=== PATIENT | male | born 1950 | race Caucasian/White ===

== ENCOUNTER 2017-03-28 08:24 | Inpatient (IN) ==
[2017-03-28] MEDS ORDERED: Aspirin 325 MG TABLET PO ONE (08:32)
--- NOTE | 2017-03-28 08:33 | Emergency Department Note ---
Disposition Clinical Impression: A-fib, Chest pain, Elevated troponin Disposition: Admitted As Inpatient Condition: Fair General Adult HPI - General Chief complaint: ED Chest Pain Stated complaint: CP / RORO Time Seen by Provider: 03/28/17 08:27 - Related Data Home Medications Medication Instructions Recorded Confirmed Acetaminophen/Diphenhydramine 1 tab PO HS 03/28/17 03/28/17 [Acetaminophen Pm Caplet] Albuterol Sulfate [Proair Hfa] 2 puff IH Q4H PRN 03/28/17 03/28/17 Glimepiride [Amaryl] 2 mg PO QAM 03/28/17 03/28/17 Omeprazole [PriLOSEC] 20 mg PO DAILY 03/28/17 03/28/17 Allergies Allergy/AdvReac Type Severity Reaction Status Date / Time No Known Allergies Allergy Verified 03/28/16 11:50 Past Medical History - Past Medical History Medical history: Reports: non-contributory, diabetes Surgical history: Reports: non-contributory - Social History Smoking Status: Never smoker Smokeless Tobacco Status: No Alcohol use: Reports: none Drug use: Reports: none Course Vital Signs Temperature 97.7 F 03/28/17 08:27 Pulse Rate 136 03/28/17 08:27 Respiratory Rate 16 03/28/17 08:27 Blood Pressure 136/108 03/28/17 08:27 O2 Sat by Pulse Oximetry 94 03/28/17 08:27 Temperature 98.2 F 03/28/17 15:38 Pulse Rate 71 03/28/17 15:38 Respiratory Rate 16 03/28/17 15:38 Blood Pressure 90/77 03/28/17 15:38 O2 Sat by Pulse Oximetry 96 03/28/17 15:38 Oxygen Delivery Oxygen Delivery Room Air Medical Decision Making - Lab Data Result diagrams: 03/28/17 12:24 03/28/17 08:31 Lab Results 03/28/17 03/28/17 03/28/17 Range/Units 08:31 08:31 08:31 WBC 11.2 H (4.3-11.1) K/mcL RBC 5.17 (4.19-5.50) M/mcL Hgb 15.6 (12.9-16.9) g/dL Hct 48.5 (37.5-50.1) % MCV 93.8 (83.0-100.0) fL MCH 30.2 (28.0-33.3) pg MCHC 32.2 (31.6-35.5) g/dL RDW 13.2 (11.5-14.5) % Plt Count 211 (140-400) K/mcL MPV 12.0 (9.4-12.4) fL Immature Gran % 0.5 (0-4) % Seg Neutrophils % 62.0 % Lymphocytes % 26.2 % Monocytes % 8.1 % Eosinophils % 2.8 % Basophils % 0.4 % Neutrophils # 7.0 (1.6-8.9) K/mcL Lymphocytes # 2.9 (0.6-4.6) K/mcL Monocytes # 0.9 (0.0-1.3) K/mcL Eosinophils # 0.3 (0.0-0.6) K/mcL Basophils # 0.1 (0.0-0.2) K/mcL PT 12.4 H (9.4-12.1) Seconds INR 1.1 APTT 31.3 (26.0-36.0) Seconds D-Dimer 472 (0-500) ng/mLFEU Sodium 136 (136-145) mEq/L Potassium 4.1 (3.5-4.5) mEq/L Chloride 101 (98-109) mEq/L Carbon Dioxide 25 (19-29) mEq/L BUN 12 (8-26) mg/dL Creatinine 0.96 (0.72-1.25) mg/dL Est GFR ( Amer) > 60 (> 60) Est GFR (Non-Af Amer) > 60 (> 60) BUN/Creatinine Ratio 13 (6-26) Glucose 230 H (70-99) mg/dL POC Glucose (58-89) Calculated Osmolality 289 (280-300) Calcium 9.3 (8.6-10.8) mg/dL Magnesium 1.9 (1.6-2.6) mg/dL Troponin I (0-0.03) ng/mL TSH 2.743 (0.350-4.840) mcIU/mL 03/28/17 03/28/17 Range/Units 08:31 11:47 WBC (4.3-11.1) K/mcL RBC (4.19-5.50) M/mcL Hgb (12.9-16.9) g/dL Hct (37.5-50.1) % MCV (83.0-100.0) fL MCH (28.0-33.3) pg MCHC (31.6-35.5) g/dL RDW (11.5-14.5) % Plt Count (140-400) K/mcL MPV (9.4-12.4) fL Immature Gran % (0-4) % Seg Neutrophils % % Lymphocytes % % Monocytes % % Eosinophils % % Basophils % % Neutrophils # (1.6-8.9) K/mcL Lymphocytes # (0.6-4.6) K/mcL Monocytes # (0.0-1.3) K/mcL Eosinophils # (0.0-0.6) K/mcL Basophils # (0.0-0.2) K/mcL PT (9.4-12.1) Seconds INR APTT (26.0-36.0) Seconds D-Dimer (0-500) ng/mLFEU Sodium (136-145) mEq/L Potassium (3.5-4.5) mEq/L Chloride (98-109) mEq/L Carbon Dioxide (19-29) mEq/L BUN (8-26) mg/dL Creatinine (0.72-1.25) mg/dL Est GFR ( Amer) (> 60) Est GFR (Non-Af Amer) (> 60) BUN/Creatinine Ratio (6-26) Glucose (70-99) mg/dL POC Glucose 228 H (58-89) Calculated Osmolality (280-300) Calcium (8.6-10.8) mg/dL Magnesium (1.6-2.6) mg/dL Troponin I 0.06 H* (0-0.03) ng/mL TSH (0.350-4.840) mcIU/mL Critical Care Time Critical Care Time: Yes Total Critical Care Time: 30 Attestation: Patient presented with a tachyarrhythmia requiring IV rate control agents and admission Attestation Statement - Attestation Attestation: I examined this patient and my medical decision-making was reviewed with the ESTATE PLANNING DIRECTOR/PA/Advanced Practice Nurse/Resident Physician. I agree with the documented findings, disposition and treatment plan as described except to the extent set forth below. [id number] time provided Patient complains of dyspnea and chest pain. In no acute distress on exam. EKG reviewed by me with the resident physician Dr. Mena which shows atrial fibrillation with RVR versus atrial flutter.
[2017-03-28 08:53] LABS: Basophils # 0.1 K/mcL (0.0-0.2); Basophils % 0.4 %; Eosinophils # 0.3 K/mcL (0.0-0.6); Eosinophils % 2.8 %; Hematocrit 48.5 % (37.5-50.1); Hemoglobin 15.6 g/dL (12.9-16.9); Immature Granulocytes % 0.5 % (0-4); Lymphocytes # 2.9 K/mcL (0.6-4.6); Lymphocytes % 26.2 %; Mean Corpuscular HGB Conc 32.2 g/dL (31.6-35.5); Mean Corpuscular Hemoglobin 30.2 pg (28.0-33.3); Mean Corpuscular Volume 93.8 fL (83.0-100.0); Monocytes # 0.9 K/mcL (0.0-1.3); Monocytes % 8.1 %; Platelet Count 211 K/mcL (140-400); Red Blood Count 5.17 M/mcL (4.19-5.50); Red Cell Distribution Width 13.2 % (11.5-14.5)
[2017-03-28 09:05] LABS: INR 1.1; Prothrombin Time 12.4 Seconds (9.4-12.1)
[2017-03-28 09:07] LABS: Activated Partial Thrombo Time 31.3 Seconds (26.0-36.0)
[2017-03-28 09:10] LABS: BUN/Creatinine Ratio 13 (6-26); Blood Urea Nitrogen 12 mg/dL (8-26); Calcium 9.3 mg/dL (8.6-10.8); Carbon Dioxide 25 mEq/L (19-29); Chloride 101 mEq/L (98-109); Glucose 230 mg/dL (70-99); Magnesium 1.9 mg/dL (1.6-2.6); Osmolality,Calculated 289 (280-300); Potassium 4.1 mEq/L (3.5-4.5); Sodium 136 mEq/L (136-145); eGFR For African Americans > 60 (> 60); eGFR For Non-African Americans > 60 (> 60)
--- NOTE | 2017-03-28 09:19 | Emergency Department Note ---
Disposition Clinical Impression: Elevated troponin A-fib Qualifiers: Atrial fibrillation type: unspecified Qualified Code(s): I48.91 - Unspecified atrial fibrillation Chest pain Qualifiers: Chest pain type: other chest pain Qualified Code(s): R07.89 - Other chest pain ; R07.8 - Other chest pain Disposition: Admitted As Inpatient Condition: Fair Referrals: NO,PCP [Non-Partnered Physician] - Forms: ED Satisfaction Letter Time of Disposition: 10:46 Chest Pain HPI - General Chief Complaint: ED Chest Pain Stated Complaint: CP / RORO Time Seen by Provider: 03/28/17 08:27 Source: patient Mode of arrival: ambulatory Limitations: no limitations Vital Signs Reviewed: Yes Nursing Notes Reviewed: Yes - History of Present Illness HPI Narrative: Patient presents to the ED the chief complaint of chest pain and shortness of breath. Patient reports all of this started about 2 weeks ago. He started developing swelling and "water" on his bilateral lower extremities. About a week ago he started getting short of breath. It is worse with exertion, bending over to tie his shoes and minimally occurs at rest. Went to see his primary care physician who did an EKG and told him that "it was bad". This was approximately 2 days ago. He was told to come to the ER if "he had any symptoms." He states that the shortness of breath has been about the same. However, over the last couple of days has been getting worse. He states that upon arrival to the ED started developing chest pain that he describes as central substernal, feels like his heart is flopping around, nonradiating, better or worse and nothing. No previous history of pain like this. No blood thinners other than aspirin which he took last night. No history of DVT or PE. No history of malignancy. Severity scale (1-10): 6 - Related Data Home Medications Medication Instructions Recorded Confirmed Acetaminophen/Diphenhydramine 1 tab PO HS 03/28/17 03/28/17 [Acetaminophen Pm Caplet] Albuterol Sulfate [Proair Hfa] 2 puff IH Q4H PRN 03/28/17 03/28/17 Glimepiride [Amaryl] 2 mg PO QAM 03/28/17 03/28/17 Omeprazole [PriLOSEC] 20 mg PO DAILY 03/28/17 03/28/17 Allergies Allergy/AdvReac Type Severity Reaction Status Date / Time No Known Allergies Allergy Verified 03/28/16 11:50 All systems ED: reviewed and negative except as stated. Cardiovascular: Reports: chest pain, dyspnea on exertion, edema Respiratory: Reports: dyspnea. Denies: cough, sputum production Gastrointestinal: Reports: nausea Chest Pain PMH - Past Medical History Medical history: Reports: non-contributory, diabetes Surgical history: Reports: non-contributory Psychiatric history: Reports: no psych history - Social History Smoking Status: Never smoker Alcohol use: Reports: none Drug use: Reports: none Physical Exam - General Limitations: no limitations General appearance: alert, in no apparent distress, obese - Head Head exam: atraumatic, normocephalic, normal inspection - Eye Eye exam: Present: normal appearance, PERRL, EOMI - ENT ENT exam: normal exam, normal oropharynx, mucous membranes moist - Neck Neck exam: Present: normal inspection, full ROM, trachea midline - Chest Chest inspection: Present: normal inspection, symmetric chest wall rise - Respiratory Respiratory exam: Present: normal lung sounds bilaterally - Cardiovascular Cardiovascular exam: Present: tachycardia, irregular rhythm - Abdominal Exam Abdominal exam: Present: soft, other (obese) - Extremities Exam Extremities exam: Present: full ROM, normal capillary refill, pedal edema (2-3+ bilat) - Neurological Exam Neurological exam: Present: alert, oriented X3 - Psychiatric Psychiatric exam: Present: normal affect, normal mood - Skin Skin exam: Present: warm, dry, intact, normal color Course Course Narrative: 66 year old male presenting with SOB. Had some CP after walking to hospital today. Self resolved. Pain free currently. Saw PCP 2 days ago and had EKG which didn't "look good" told to come to ED. Had blood work yesterday with elevated trop. Admitting for new onset A-fib, CP, elevated trop. Has had ASA already. Vital Signs Temperature 97.7 F 03/28/17 08:27 Pulse Rate 136 03/28/17 08:27 Respiratory Rate 16 03/28/17 08:27 Blood Pressure 136/108 03/28/17 08:27 O2 Sat by Pulse Oximetry 94 03/28/17 08:27 Temperature 97.7 F 03/28/17 08:27 Pulse Rate 114 03/28/17 10:01 Respiratory Rate 16 03/28/17 10:01 Blood Pressure 135/60 03/28/17 10:01 O2 Sat by Pulse Oximetry 95 03/28/17 10:01 Oxygen Delivery Oxygen Delivery Room Air Chest Pain - Medical Records Medical records reviewed: Yes I reviewed the patient's medical records. - Lab Data Lab results reviewed: Yes I reviewed the patient's lab results. Result diagrams: 03/28/17 08:31 03/28/17 08:31 Lab Results 03/28/17 03/28/17 03/28/17 Range/Units 08:31 08:31 08:31 WBC 11.2 H (4.3-11.1) K/mcL RBC 5.17 (4.19-5.50) M/mcL Hgb 15.6 (12.9-16.9) g/dL Hct 48.5 (37.5-50.1) % MCV 93.8 (83.0-100.0) fL MCH 30.2 (28.0-33.3) pg MCHC 32.2 (31.6-35.5) g/dL RDW 13.2 (11.5-14.5) % Plt Count 211 (140-400) K/mcL MPV 12.0 (9.4-12.4) fL Immature Gran % 0.5 (0-4) % Seg Neutrophils % 62.0 % Lymphocytes % 26.2 % Monocytes % 8.1 % Eosinophils % 2.8 % Basophils % 0.4 % Neutrophils # 7.0 (1.6-8.9) K/mcL Lymphocytes # 2.9 (0.6-4.6) K/mcL Monocytes # 0.9 (0.0-1.3) K/mcL Eosinophils # 0.3 (0.0-0.6) K/mcL Basophils # 0.1 (0.0-0.2) K/mcL PT 12.4 H (9.4-12.1) Seconds INR 1.1 APTT 31.3 (26.0-36.0) Seconds D-Dimer 472 (0-500) ng/mLFEU Sodium 136 (136-145) mEq/L Potassium 4.1 (3.5-4.5) mEq/L Chloride 101 (98-109) mEq/L Carbon Dioxide 25 (19-29) mEq/L BUN 12 (8-26) mg/dL Creatinine 0.96 (0.72-1.25) mg/dL Est GFR ( Amer) > 60 (> 60) Est GFR (Non-Af Amer) > 60 (> 60) BUN/Creatinine Ratio 13 (6-26) Glucose 230 H (70-99) mg/dL Calculated Osmolality 289 (280-300) Calcium 9.3 (8.6-10.8) mg/dL Magnesium 1.9 (1.6-2.6) mg/dL Troponin I (0-0.03) ng/mL TSH 2.743 (0.350-4.840) mcIU/mL 03/28/17 Range/Units 08:31 WBC (4.3-11.1) K/mcL RBC (4.19-5.50) M/mcL Hgb (12.9-16.9) g/dL Hct (37.5-50.1) % MCV (83.0-100.0) fL MCH (28.0-33.3) pg MCHC (31.6-35.5) g/dL RDW (11.5-14.5) % Plt Count (140-400) K/mcL MPV (9.4-12.4) fL Immature Gran % (0-4) % Seg Neutrophils % % Lymphocytes % % Monocytes % % Eosinophils % % Basophils % % Neutrophils # (1.6-8.9) K/mcL Lymphocytes # (0.6-4.6) K/mcL Monocytes # (0.0-1.3) K/mcL Eosinophils # (0.0-0.6) K/mcL Basophils # (0.0-0.2) K/mcL PT (9.4-12.1) Seconds INR APTT (26.0-36.0) Seconds D-Dimer (0-500) ng/mLFEU Sodium (136-145) mEq/L Potassium (3.5-4.5) mEq/L Chloride (98-109) mEq/L Carbon Dioxide (19-29) mEq/L BUN (8-26) mg/dL Creatinine (0.72-1.25) mg/dL Est GFR ( Amer) (> 60) Est GFR (Non-Af Amer) (> 60) BUN/Creatinine Ratio (6-26) Glucose (70-99) mg/dL Calculated Osmolality (280-300) Calcium (8.6-10.8) mg/dL Magnesium (1.6-2.6) mg/dL Troponin I 0.06 H* (0-0.03) ng/mL TSH (0.350-4.840) mcIU/mL - Radiology Data Radiology results reviewed: Yes I reviewed the patient's radiology results. - EKG Data EKG attestation: Yes I reviewed and interpreted this EKG. EKG results narrative: A. fib with RVR, rate 141, QRS 125, QTC 387, nonspecific T-wave changes that appear to be rate dependent. EKG from September 2016 shows sinus rhythm, rate 94 with similar morphology Heart Score - Score History: Moderately Suspicious EKG: Non Specific repolarisation Disturbance Age: 45-65 Risk Factors: 1-2 risk factors Troponin: 1-3x normal limit HEART Score Total: 5 S.B.A.R. - S.Nayeli.A.Lala Situation: Demographics, MOA Background: Presenting Complaint, Relevant PMH, Meds, & Allergies Assessment: Vital Signs, Course and respsone to treatment, Exam Concerns, Patient/Family Expectation, Pertinant Lab Results, Outstanding Labs Recommendation: Recommendation based on pending studies, treatments, or consults S.B.A.RRishi Report Given to: Dr. Aaron Erazo Repor Time: 10:45
[2017-03-28 09:27] LABS: Thyroid Stimulating Hormone 2.743 mcIU/mL (0.350-4.840)
[2017-03-28] MEDS ORDERED: *HR* Heparin 5,000 UNIT/ML VIAL IVP PRN ×2 (11:14)
[2017-03-28] MEDS ORDERED: *HR* Heparin 5,000 UNIT/ML VIAL IVP ONE (11:14)
[2017-03-28] MEDS ORDERED: Furosemide 40 MG/4 ML VIAL IVP ONE (11:14)
[2017-03-28] MEDS ORDERED: Heparin 25,000 UNIT/500 ML D5W 25,000 UNIT/500 ML MLS IVC SCH (11:15)
--- NOTE | 2017-03-28 11:24 | Event Note ---
Date of Encounter: 03/28/17 Time of Encounter: 11:21 Patient seen and examined with nurse practitioner. Patient presents with symptoms and signs of congestive heart failure. He is in atrial fibrillation with rapid ventricular response and this is a new diagnosis for him. Will start IV Lasix. His own Cardizem drip currently, rate is around 100. No contraindication for anticoagulation. His chadVasc score is atleast 1, will be 65 next month. Will get echo. Start heparin drip. He also has troponin elevation which is likely demand ischemia, however occlusive coronary disease may need to be ruled out. He mentioned that he had a prior stress test in August and he was told that it was unremarkable. He has been having some nausea and an episode of vomiting likely to gastric and hepatic congestion. No obvious GI bleed. will get RUQ US to evaluate the gall bladder, no RUQ tenderness on exam. Will check FOBT as he is started on heparin. Cardiology consultation. Full code
[2017-03-28] MEDS ORDERED: *HR* HYDROcodone/Acet 5/325 mg TABLET PO PRN (12:11)
[2017-03-28] MEDS ORDERED: Acetaminophen 325 MG TABLET PO PRN (12:11)
[2017-03-28] MEDS ORDERED: Naloxone 0.4 MG/ML INJ IVP PRN (12:11)
[2017-03-28] MEDS ORDERED: Dextrose Gel 15 GM PO PRN ×2 (12:19)
[2017-03-28] MEDS ORDERED: *HR* Dextrose 50 % in Water (Syg) 50 ML SYRINGE IVP PRN (12:19)
[2017-03-28] MEDS ORDERED: D5% in Water 1,000 ML IVC PRN (12:19)
--- NOTE | 2017-03-28 12:23 | Internal Med History&Physical ---
Date of Encounter: 03/28/17 Time of Encounter: 12:22 Assessment and Plan (1) New onset atrial fibrillation Current visit: Yes Status: Acute 1 patient has been experiencing increasing shortness of breath as well as feeling his heart is flip-flopping or jumping out of his chest. EKG did reveal A. fib with RVR. Patient does not have any past history of atrial fibrillation. We will continue with Cardizem drip presently rate is 106 goal rate less than 100 2 we will obtain cardiac echo 3 continuous cardiac monitoring 4 anticoagulate with heparin drip 5 consult cardiology (2) Pulmonary vascular congestion Current visit: Yes Status: Acute 1 chest x-ray did show some mild pulmonary vascular congestion is likely secondary to new onset of atrial fibrillation. Patient has had weight gain as well as some lower extremity edema. We will obtain cardiac echo to rule out any heart failure 2 place patient on fluid restriction 1500 mL's 3 monitor intake and output daily weights 4 Lasix 40 mg IV daily 5 low-sodium diet (3) Elevated troponin Current visit: Yes Status: Acute 1 troponin on 03/27/2017 was 0.08 today's 0.06-most likely this is demand ischemia from atrial fibrillation. We will continue trending cardiac troponins 2 continuous cardiac monitoring (4) Diabetes mellitus Current visit: Yes Status: Acute 1 presently patient is on oral antidiabetics we will hold those for now we will check blood sugars before meals at bedtime with sliding scale goal is to maintain postprandial less than 180 2 diabetic diet Qualifiers: Diabetes mellitus type: type 2 Diabetes mellitus complication status: without complication Diabetes mellitus terminal gauger supervisor insulin use: without care home use Qualified Code(s): E11.9 - Type 2 diabetes mellitus without complications Internal Medicine - H&P: HPI Chief complaint: CP Admitted From: Emergency Dept Plans for Post Hospital Care: Home History of present illness: Mr. Nails is a 66 year old male past medical history of diabetes. According to the patient has been experiencing increasing shortness of breath as well as weight gain. He states he has gained approximately 20 pounds since August. On Sunday he had difficulty climbing up a flight of stairs which normally he can do without any problems. He was experiencing shortness of breath on exertion and was profusely sweating. Afterwards he had to rest for some time in air conditioning. He went to his primary care on Sunday and EKG was obtained and according to primary care records he was in sinus rhythm with occasional PVC. Lab work was obtained and on 03/27/17 troponin was 0.08 patient was advised to go to the ER for any chest pain. Today patient was hospital obtaining Holter monitor when he began to experience left-sided chest pain he described as his heart was flipped flopping he felt as if his heart was going to jump out of his chest. He was short of breath. He presented to the ER for evaluation. According to ER records patient's EKG revealed A. fib with RVR rate of 130. Patient was given Cardizem bolus as well as started on Cardizem drip his rate came down to 108. Lab work revealed troponin of 0.06 patient was given aspirin chest x-ray revealed some pulmonary congestion with slight pleural effusion bilaterally. He was admitted for further workup and evaluation presently the patient denies any chest pain or shortness of breath he is in atrial fib with a rate of 108 to 115. His lung sounds are clear heart sounds irregular with S1-S2 no rubs clicks gallops murmurs noted. He does have +1 pitting edema up to knees bilaterally. Presently he appears to be hemodynamically stable. I reviewed this case with Dr. Walker who agrees with plan. Past Med Surg Social Fam HX - Past Medical History Medical history: non-contributory, diabetes Psychiatric history: no psych history - Past Surgical History Surgical History: non-contributory - Social History Smoking Status: Never smoker Smokeless Tobacco Status: No Alcohol use: none Drug use: none - Family History Father Living Status: Hx Family Cardiac Disorders: Yes (Heart disease) Hx Family Cancer: Yes (Prostate cancer) Hx Family Endocrine Disorder: Yes (Diabetes) Mother Living Status: Hx Family Cancer: Yes (Esophageal cancer) Internal Medicine - H&P: Meds Acetaminophen/Diphenhydramine [Acetaminophen Pm Caplet] 1 tab PO HS 03/28/17 [ History] Albuterol Sulfate [Proair Hfa] 2 puff IH Q4H PRN 03/28/17 [History] Glimepiride [Amaryl] 2 mg PO QAM 03/28/17 [History] Omeprazole [PriLOSEC] 20 mg PO DAILY 03/28/17 [History] Allergies No Known Allergies Allergy (Verified 03/28/16 11:50) All Systems PM: A 10-system review of systems was performed and is negative for pertinent findings except as documented above in the HPI. - Constitutional Constitutional: excessive sweating, weight gain - Cardiovascular Cardiovascular ROS IM: chest pain, dyspnea on exertion - Respiratory Respiratory: dyspnea on exertion, no cough, no dyspnea, no wheezing, no excessive phlegm production - Gastrointestinal Gastrointestinal: belching, no abdominal pain, no diarrhea, no hematemesis, no hematochezia, no melena, no nausea, no vomiting - Musculoskeletal Musculoskeletal ROS IM: no numbness, no tingling - Integumentary Integumentary IM: no rash, no unusual bruising - Neurological Neurological ROS: no confusion, no convulsions, no focal weakness, no numbness, no tingling, no tremor(s) - Constitutional Vitals: Temp Pulse Resp BP Pulse Ox 98.2 F 105 16 118/81 96 03/28/17 11:39 03/28/17 11:39 03/28/17 11:39 03/28/17 11:39 03/28/17 11:39 General appearance: Present: A&O X 3, morbidly obese, answers questions appropriately - Head Head exam: Present: atraumatic, normocephalic - Eye Eye exam: Present: PERRL, conjuntiva pink, sclera anicteric Pupils: Present: PERRL - Neck Neck exam general surgery: Present: supple, trachea midline. Absent: lymphadenopathy - Respiratory Respiratory exam: Present: CTAB. Absent: accessory muscle use, rales, rhonchi, wheezes - Cardiovascular Cardiovascular exam: Present: RRR, +S1, +S2. Absent: diastolic murmur, gallop, rubs, systolic murmur - GI/Abdominal GI/Abdominal exam: Present: normal bowel sounds, soft, no peritoneal signs. Absent: distended, tenderness - Extremities Exam Extremities exam: Present: pedal edema, warm, radial pulses palpable and symetrical. Absent: calf tenderness, cyanotic - Neurological Exam Neurological exam: Present: CN II-XII intact, oriented X3, no focal deficits. Absent: pronater drift, facial droop, speech deficit - Skin Skin exam: Present: dry, intact Internal Med - H&P Results - Labs CBC & Chem 7: 03/28/17 12:24 03/28/17 08:31 - EKG Data Prior EKG available for review: yes When compared to previous EKG: there are significant changes - Impressions EKG with atrial fibrillation with rapid ventricular response rate of 141 - Diagnostic Studies Chest x-ray Additional comments: Chest X-Ray 03/28/17 08:33 IMPRESSION: Mild pulmonary vascular congestion without overt pulmonary edema. Small bilateral pleural effusions versus chronic pleural thickening, similar to prior exam. D/ / 03/28/2017 09:29:54 Darwin yLnn MD / marya Interpreting Provider: Darwin Lynn MD
[2017-03-28 12:35] LABS: Hematocrit 49.1 % (37.5-50.1); Hemoglobin 16.2 g/dL (12.9-16.9); Mean Corpuscular Hemoglobin 30.5 pg (28.0-33.3); Mean Corpuscular Volume 92.5 fL (83.0-100.0); Mean Platelet Volume 11.2 fL (9.4-12.4); Platelet Count 204 K/mcL (140-400); Red Blood Count 5.31 M/mcL (4.19-5.50); Red Cell Distribution Width 13.2 % (11.5-14.5)
[2017-03-28 12:51] LABS: INR 1.2; Prothrombin Time 12.6 Seconds (9.4-12.1)
[2017-03-28 12:53] LABS: Activated Partial Thrombo Time 30.2 Seconds (26.0-36.0)
[2017-03-28] MEDS: Insulin LISPRO 300 UNITS/3 ML VIAL SQ SCH ×3 (12:55→20:52)
--- NOTE | 2017-03-28 14:00 | Cardiology Consult Note ---
<Ana Barrera Marla - Last Filed: 03/28/17 14:34> Date of Encounter: 03/28/17 Time of Encounter: 14:00 Assessment and Plan (1) A-fib Current Visit: Yes Status: Acute Newly diagnosed atrial fibrillation with RVR; unclear chronicity. Suspect paroxysmal as patient was in NSR on 03/26/17 at PCP office. Reports symptoms--shortness of breath, epigastric pain, palpitations, and weakness since Sunday. On cardizem gtt at 5mg/hr--increase gtt per protocol to keep HR less than 100. HR 130's upon examination. TSH normal, electrolytes stable. Echocardiogram pending. Negative nuclear stress test 04/29/14. CHA2Ds Vasc=3 (DMII, HTN, age--67 next mo). Recommend full anticoagulation. Will make further recommendations throughout hospital course. Continue heparin gtt for now. Suspect underlying SONA contributing to AF; recommend outpatient sleep study. Qualifiers: Atrial fibrillation type: paroxysmal Qualified Code(s): I48.0 - Paroxysmal atrial fibrillation (2) Elevated troponin Current Visit: Yes Status: Acute Troponin 0.08, 0.06 in the setting of atrial fibrillation with RVR; suspect secondary to demand ischemia. No ischemic ECG changes noted. Chest pain free. Risk factors for CAD include: HTN, HLD, DMII. He does describe epigastric pain associated with nausea--US of gallbladder pending. Non-exercise nuclear stress test in April 2014 was negative for ischemia. Will obtain echocardiogram. Further recommendations to follow. Discussion w patient/family: The assessment and plan as outlined above was discussed with the patient and/or family members who expressed understanding and agreement. All questions were answered. Thank you for involving us in the care of your patient. Please call with any questions. The patient will be discussed and reviewed with Dr. Voss; changes to be made accordingly. History of Present Illness Consult date: 03/28/17 Requesting physician: Shaista Medina Consult reason: New onset afib Chief complaint: Shortness of breath, palpitations History of present illness: Mr. Nails is a 66 year old male with PMH significant for DMII, HTN, HLD who presented to the ED with complaints of palpitations and shortness of breath. He was recently seen by PCP who ordered testing on Sunday which included a holter monitor; patient stated he was walking in from the parking when he felt that " my heart was going to jump out of my chest." He then went to the ED. Reports since this past Sunday he has been more weak, short of breath, had worsening BLE edema, and has experienced palpitations. Associated symptoms include epigastric pain with nausea. Upon arrival to ED, ECG demonstrated atrial fibrillation with RVR. Prior ECG from Sunday reviewed, demonstrated SR with IVCD, HR 88. Past Med Surg Social Fam HX - Past Medical History Medical history: non-contributory, diabetes, hyperlipidemia, hypertension Psychiatric history: no psych history - Past Surgical History Surgical History: herniorrhaphy (x3), knee replacement (right), other ( tonsillectomy/adenoidectomy) - Social History Smoking Status: Never smoker Smokeless Tobacco Status: No Alcohol use: none Drug use: none - Family History Father Living Status: Hx Family Cardiac Disorders: Yes (Heart disease) Hx Family Cancer: Yes (Prostate cancer) Hx Family Endocrine Disorder: Yes (Diabetes) Mother Living Status: Hx Family Cancer: Yes (Esophageal cancer) Medications and Allergies Acetaminophen/Diphenhydramine [Acetaminophen Pm Caplet] 1 tab PO HS 03/28/17 [ History] Albuterol Sulfate [Proair Hfa] 2 puff IH Q4H PRN 03/28/17 [History] Glimepiride [Amaryl] 2 mg PO QAM 03/28/17 [History] Omeprazole [PriLOSEC] 20 mg PO DAILY 03/28/17 [History] Allergies No Known Allergies Allergy (Verified 03/28/16 11:50) All Systems Review: A 10-system review of systems was performed and is negative for pertinent findings except as documented above in the HPI. - Cardiovascular Cardiovascular: as per HPI Physical Examination Vital Signs, Last 4 Hours Temp Pulse Resp BP Pulse Ox 03/28/17 11:39 98.2 F 105 16 118/81 96 03/28/17 11:12 16 155/83 General: Other (morbidly obese) HEENT: Atraumatic, Normocephaly Cardiac: Other (irregularly irregular) Lungs: Other (Diminished bibasilar) Abdomen: Soft (obese) Skin: No rashes noted on visualized skin Musculoskeletal: No Chest Wall Tenderness Extremities: Other (BLE edema ) Results 03/28/17 12:24 03/28/17 08:31 Lab Results 03/28/17 03/28/17 12:24 12:24 WBC 11.8 H Hgb 16.2 Hct 49.1 Plt Count 204 INR 1.2 APTT 30.2 Impressions Chest X-Ray 03/28/17 08:33 IMPRESSION: Mild pulmonary vascular congestion without overt pulmonary edema. Small bilateral pleural effusions versus chronic pleural thickening, similar to prior exam. D/ / 03/28/2017 09:29:54 Darwin Lynn MD / marya Interpreting Provider: Darwin Lynn MD - Imaging and Cardiology Chest Xray: report reviewed Stress Test: report reviewed Echo: pending - EKG Interpretation EKG results cardiology: personally reviewed Consult Discharge Plan - Plan Referrals: Óscar Apple Jr, MD [Primary Care Provider] - 04/06/17 10:40 am <Elizabeth Voss - Last Filed: 03/28/17 16:11> Date of Encounter: 03/28/17 Assessment and Plan Discussion w patient/family: The assessment and plan as outlined above was discussed with the patient and/or family members who expressed understanding and agreement. All questions were answered. Thank you for involving us in the care of your patient. Please call with any questions. History of Present Illness History of present illness: Mr. Nails is a 66 year old male All Systems Review: A 10-system review of systems was performed and is negative for pertinent findings except as documented above in the HPI. Physical Examination Vital Signs, Last 4 Hours Temp Pulse Resp BP Pulse Ox 03/28/17 15:38 98.2 F 71 16 90/77 96 Results 03/28/17 12:24 03/28/17 08:31 Lab Results 03/28/17 03/28/17 03/28/17 12:24 12:24 14:38 WBC 11.8 H Hgb 16.2 Hct 49.1 Plt Count 204 INR 1.2 APTT 30.2 Troponin I 0.07 H* - Attending Attestation I examined this patient and my medical decision-making was reviewed with the GLASS ENGRAVER/PA/Advanced Practice Nurse/Resident Physician. I agree with the documented findings, disposition and treatment plan. Mr. Nails presents with newly discovered AFIB with RVR and diastolic heart failure. I agree with IV diuresis and cardizem gtt for now along with anticoagulation. I suspect he has undiagnosed sleep apnea and will need a sleep study as outpatient. However, his troponins are also mildly elevated. We will await echo findings to help guide plan of care. Will need to consider ischemic evaluation.
[2017-03-29 05:00] LABS: Basophils # 0.1 K/mcL (0.0-0.2); Basophils % 0.5 %; Eosinophils # 0.4 K/mcL (0.0-0.6); Eosinophils % 2.7 %; Hematocrit 51.3 % (37.5-50.1); Hemoglobin 16.8 g/dL (12.9-16.9); Immature Granulocytes % 0.8 % (0-4); Lymphocytes # 3.2 K/mcL (0.6-4.6); Lymphocytes % 24.7 %; Mean Corpuscular HGB Conc 32.7 g/dL (31.6-35.5); Mean Corpuscular Hemoglobin 29.9 pg (28.0-33.3); Mean Corpuscular Volume 91.4 fL (83.0-100.0); Mean Platelet Volume 11.7 fL (9.4-12.4); Monocytes # 1.2 K/mcL (0.0-1.3); Monocytes % 8.8 %; Neutrophils # 8.2 K/mcL (1.6-8.9); Platelet Count 194 K/mcL (140-400); Red Blood Count 5.61 M/mcL (4.19-5.50); Red Cell Distribution Width 13.3 % (11.5-14.5); Segmented Neutrophils % 62.5 %
[2017-03-29 05:19] LABS: BUN/Creatinine Ratio 12 (6-26); Blood Urea Nitrogen 11 mg/dL (8-26); Calcium 9.9 mg/dL (8.6-10.8); Carbon Dioxide 28 mEq/L (19-29); Chloride 98 mEq/L (98-109); Chol/HDL Ratio 6.2 (0-4.9); Cholesterol 193 mg/dL (< 200); Glucose 177 mg/dL (70-99); HDL Cholesterol 31 mg/dL (40-59); LDL Cholesterol,Calculated 122 mg/dL (0-99); Magnesium 1.7 mg/dL (1.6-2.6); Osmolality,Calculated 288 (280-300); Potassium 3.6 mEq/L (3.5-4.5); Sodium 137 mEq/L (136-145); Triglycerides 199 mg/dL (< 150); eGFR For African Americans > 60 (> 60); eGFR For Non-African Americans > 60 (> 60)
[2017-03-29] MEDS: Insulin LISPRO 300 UNITS/3 ML VIAL SQ SCH ×4 (08:47→20:37)
[2017-03-29] MEDS: Furosemide 40 MG/4 ML VIAL IVP SCH (08:48)
[2017-03-29] MEDS: Aspirin Enteric Coated 81 MG Tablet PO SCH (08:48)
--- NOTE | 2017-03-29 10:30 | Electrocardiograph Report ---
[address] [address] Test Date: 2017-03-28 Pat Name: Soren Nails Department: 102 Room: 2NE26 Gender: M [place]: : 1950 Requested By: Davian Mena Order Number: [id number] Reading MD: Yousif Donahue Measurements Intervals [place] Rate: 141 P: NC: 0 QRS: -52 QRSD: 125 T: 91 QT: 305 QTc: 387 Interpretive Statements ATRIAL FIBRILLATION WITH RAPID VENTRICULAR RESPONSE WITH ABERRANT CONDUCTION OR VENTRICULAR PREMATURE COMPLEXES LEFT ANTERIOR FASCICULAR BLOCK Electronically Signed On 03-29-2017 10:28:08 EDT by Yousif Donahue
--- NOTE | 2017-03-29 10:56 | Cardiology Progress Note ---
Date of Encounter: 03/29/17 Time of Encounter: 10:30 Assessment and Plan (1) A-fib Current Visit: Yes Status: Acute Newly diagnosed atrial fibrillation with RVR; unclear chronicity. Suspect paroxysmal as patient was in NSR on 03/26/17 at PCP office. Reports symptoms--shortness of breath, epigastric pain, palpitations, and weakness since Sunday. On cardizem gtt at 10mg/hr--increase gtt per protocol to keep HR less than 100. 12 hour tele: avg ZU=760, currently 80's-90's afib/flutter. Aflutter with slow ventricular response, HR high 30's noted during nocturnal hours, suspect secondary to SONA. Anticipate transition to po cardizem today. TSH normal, electrolytes stable. Echocardiogram pending--further recommendations to follow pending results. Negative nuclear stress test 04/29/14. CHA2Ds Vasc=3 (DMII, HTN, age--65 next mo). Recommend full anticoagulation. Continue heparin gtt for now. Coumadin vs. NOAC's discussed, he is agreeable to NOAC. Will obtain smiley check for Xarelto 20 mg daily[address] with Dr. Voss. Suspect underlying SONA contributing to AF; recommend outpatient sleep study. Qualifiers: Atrial fibrillation type: paroxysmal Qualified Code(s): I48.0 - Paroxysmal atrial fibrillation (2) Elevated troponin Current Visit: Yes Status: Acute Troponin 0.08, 0.06 in the setting of atrial fibrillation with RVR; suspect secondary to demand ischemia. No ischemic ECG changes noted. Chest pain free. Risk factors for CAD include: HTN, HLD, DMII. He does describe epigastric pain associated with nausea--US of gallbladder pending. Non-exercise nuclear stress test in April 2014 was negative for ischemia. Will obtain echocardiogram. Further recommendations to follow. (3) CHF (congestive heart failure) Current Visit: Yes Status: Acute Suspect diastolic CHF; likely secondary to afib, HTN, and SONA. Admits to diet high in sodium. Cumulative I&O: -136 mL, question accuracy of documented I&O's. Continue IV diuresis. Continue strict I&Os, 2L fluid restriction and Na restriction diet. Echocardiogram pending, further recommendations to follow. Qualifiers: Congestive heart failure type: diastolic Congestive heart failure chronicity: acute Qualified Code(s): I50.31 - Acute diastolic (congestive) heart failure Discussion w patient/family: The assessment and plan as outlined above was discussed with the patient and/or family members who expressed understanding and agreement. All questions were answered. Thank you for involving us in the care of your patient. Please call with any questions. The patient will be discussed and reviewed with Dr. Voss; changes to be made accordingly. Subjective Principal diagnosis: New onset afib Interval history: Seen and examined. States did not sleep well overnight. No complaints this morning upon exam. Discussed plan with patient, he agrees. Objective Vital Signs, Last 4 Hours Temp Pulse Resp BP Pulse Ox 03/29/17 06:55 98.1 F 80 16 163/81 94 General: Conversant, No Apparent Distress HEENT: Atraumatic, Normocephaly, Mucus Membranes Moist Cardiac: Other (irregularly irregular) Lungs: Normal Breath Sounds Neuro: Alert and responsive Abdomen: Soft Skin: No rashes noted on visualized skin Musculoskeletal: No Chest Wall Tenderness Extremities: Other (BLE edema to knees. ) Results 03/29/17 04:31 03/29/17 04:31 Lab Results 03/28/17 03/28/17 03/28/17 12:24 12:24 14:38 WBC 11.8 H Hgb 16.2 Hct 49.1 Plt Count 204 INR 1.2 APTT 30.2 Sodium Potassium Chloride Carbon Dioxide BUN Creatinine Glucose Calcium Magnesium Troponin I 0.07 H* 03/28/17 03/28/17 03/29/17 21:18 21:18 04:31 WBC 13.1 H Hgb 16.8 Hct 51.3 H Plt Count 194 INR APTT 34.9 Sodium Potassium Chloride Carbon Dioxide BUN Creatinine Glucose Calcium Magnesium Troponin I 0.06 H* 03/29/17 03/29/17 04:31 04:31 WBC Hgb Hct Plt Count INR APTT 48.3 H Sodium 137 Potassium 3.6 Chloride 98 Carbon Dioxide 28 BUN 11 Creatinine 0.91 Glucose 177 H Calcium 9.9 Magnesium 1.7 Troponin I - Imaging and Cardiology Echo: pending - EKG Interpretation EKG results cardiology: personally reviewed Consult Discharge Plan - Plan Referrals: Óscar Apple Jr, MD [Primary Care Provider] - 04/06/17 10:40 am
[2017-03-29] MEDS ORDERED: Perflutren Lipid Microsphere 1.3 ML in 0.9 % Sodium Chloride 8.7 ML IVP ONE (11:05)
--- NOTE | 2017-03-29 12:36 | ECHO - Doppler Report ---
Echocardiogram Name: Soren Nails Date of Study: 03/29/2017 Date: 1950 Ht: 68.0 in Medical Record#: [id number] Age: 66 Wt: 354.0 lb Gender: Male BSA: 2.61 Order #: [id number] Location: [facility] Room #: 2NE26 Reading Physician: Richar Jerome MD, [facility] Clerk Cashier: Lyle Bass RN Ordering Physician: Shaista Medina CNP Primary Physician: Óscar Apple MD Indications: Arrhythmia Impressions: Low-normal LV systolic function, LVEF 50-55%. Mild concentric left ventricular hypertrophy. Indeterminate diastolic function due to atrial fibrillation. Normal right ventricular size and function. No significant valvular dysfunction. Unable to estimate RVSP due to lack of TR jet. Left Ventricular Wall Motion: Rest Echo Findings All wall segments showed normal motion. Findings: Study Quality * Suboptimal echo windows. ECG Findings * Atrial fibrillation. Left Ventricle * Low-normal LV systolic function, LVEF 50-55%. * Normal LV chamber size. * Mild concentric left ventricular hypertrophy. * Indeterminate diastolic function due to atrial fibrillation. Right Ventricle * Normal right ventricular size and function. Left Atrium * Normal left atrial size. Right Atrium * Normal right atrial size. Aorta * Normally sized aortic root. Pericardium * There is no pericardial effusion present. IVC * The IVC is not well evaluated. Aortic Valve * Aortic valve not well visualized. Appears trileaflet with mild sclerosis. * No aortic stenosis. * No aortic regurgitation. Mitral Valve * Mild mitral annular calcification * No mitral stenosis. * No mitral regurgitation. Tricuspid Valve * Tricuspid valve not well visualized. * No tricuspid stenosis. * Trace tricuspid regurgitation. * Unable to estimate RVSP due to lack of TR jet. Pulmonic Valve * Pulmonic valve not well visualized. * No pulmonic stenosis. * Trace pulmonic regurgitation. History Diabetes Hypercholesteremia Family History of CAD Measurements: BP: 163/ 81 2D Normal Values RVIDd: 2.80 cm IVSd: 1.30 cm 0.6 - 1.0 cm LVIDd: 5.30 cm 3.7 - 5.6 cm LVPWd: 1.30 cm 0.6 - 1.1 cm LVIDs: 3.70 cm 1.5 - 3.6 cm AO: 3.80 cm < 4.0 cm %FS: 30.20 cm >25 % LVOT Diam: .00 cm LA volume: 80 Updated by Richar Jerome MD, [facility] on 03/29/2017 12:29:30 PM electronically signed on 03/29/2017 12:29:53 PM with status of Final Wall Motion Rodriguez: 1=Normal, 2=Hypokinesis, 3=Akinesis, 4=Dyskinesis, 5=Aneurysmal, 6=Hyperkinetic, X=Not Visualized (Blank)=Missing
[2017-03-29] MEDS: Diltiazem CD (24hr) 180 MG CAPSULE PO SCH (14:17)
[2017-03-29] MEDS: *HR* Rivaroxaban 10 MG TABLET PO SCH (14:18)
--- NOTE | 2017-03-29 17:59 | Internal Med Progress Note ---
Date of Encounter: 03/29/17 Time of Encounter: 17:56 - Assessment and plan (1) New onset atrial fibrillation Current Visit: Yes Status: Acute Assessment and plan: New-onset of atrial fibrillation. On a Cardizem drip. Possible etiology: Obesity hypoventilation syndrome/obstructive sleep apnea Cardiology on the board. We will follow the recommendation (2) Elevated troponin Current Visit: Yes Status: Acute Assessment and plan: Possible demand ischemia (3) Diabetes mellitus Current Visit: Yes Status: Acute Assessment and plan: Within acceptable range. Qualifiers: Diabetes mellitus type: type 2 Diabetes mellitus complication status: without complication Diabetes mellitus fdc insulin use: without fdc use Qualified Code(s): E11.9 - Type 2 diabetes mellitus without complications - Subjective Interval history: Patient seen and examined. Chart reviewed. Patient does not complains of chest pain, shortness of breath, abdominal pain or diarrhea - Constitutional Vitals: Temp Pulse Resp BP Pulse Ox 97.6 F 72 20 123/56 94 03/29/17 14:25 03/29/17 14:25 03/29/17 14:25 03/29/17 14:25 03/29/17 14:25 General appearance: Present: A&O X 3, morbidly obese, answers questions appropriately Internal Medicine: Result - Labs CBC & Chem 7: 03/29/17 04:31 03/29/17 04:31 Labs: Short CBC 03/29/17 Range/Units 04:31 WBC 13.1 H (4.3-11.1) K/mcL Hgb 16.8 (12.9-16.9) g/dL Hct 51.3 H (37.5-50.1) % Plt Count 194 (140-400) K/mcL Neutrophils # 8.2 (1.6-8.9) K/mcL BMP 03/29/17 04:31 Sodium 137 Potassium 3.6 Chloride 98 Carbon Dioxide 28 BUN 11 Creatinine 0.91 Glucose 177 H Calcium 9.9 Cardiac Enzymes 03/28/17 Range/Units 21:18 Troponin I 0.06 H* (0-0.03) ng/mL - ABG Interpretation ABG results: PT/INR, D-dimer PT 12.6 Seconds (9.4-12.1) H 03/28/17 12:24 D-Dimer 472 ng/mLFEU (0-500) 03/28/17 08:31 Consult Discharge Plan - Plan Referrals: Óscar Apple Jr, MD [Primary Care Provider] - 04/06/17 10:40 am
[2017-03-30] MEDS ORDERED: Regadenoson 0.4 MG/5 ML SYRINGE IVP ONE (06:09)
--- NOTE | 2017-03-30 10:30 | Cardiology Progress Note ---
Date of Encounter: 03/30/17 Time of Encounter: 10:26 Assessment and Plan (1) Elevated troponin Current Visit: Yes Status: Acute Troponin 0.08, 0.06 in the setting of atrial fibrillation with RVR; suspect secondary to demand ischemia. No ischemic ECG changes noted. Chest pain free. Risk factors for CAD include: HTN, HLD, DMII. He does describe epigastric pain associated with nausea--US of gallbladder pending. Non-exercise nuclear stress test in April 2014 was negative for ischemia. TTE shows preserved EF, mild LVH. No significant valvular disease. 2 day stress test pending. Results will be completed tomorrow. Further recommendations to follow. (2) CHF (congestive heart failure) Current Visit: Yes Status: Acute Mild acute diastolic CHF. likely secondary to afib, HTN, and SONA. Admits to diet high in sodium. Cumulative I&O: - 200mL, Continue IV diuresis. Continue strict I&Os, 2L fluid restriction and Na restriction diet. Qualifiers: Congestive heart failure type: diastolic Congestive heart failure chronicity: acute Qualified Code(s): I50.31 - Acute diastolic (congestive) heart failure (3) A-fib Current Visit: Yes Status: Acute Newly diagnosed atrial fibrillation with RVR; unclear chronicity. Suspect paroxysmal as patient was in NSR on 03/26/17 at PCP office. Reports symptoms--shortness of breath, epigastric pain, palpitations, and weakness since Sunday. Converted to NSR on cardizem gtt and converted to oral cardizem. Remains in NSR. TSH normal, electrolytes stable. CHA2Ds Vasc=3 (DMII, HTN, age--67 next mo). Recommend full anticoagulation. Coumadin vs. NOAC's discussed, he is agreeable to NOAC. Xarelto was found to be affordable for him. Xarelto started. Suspect underlying SONA contributing to AF; recommend outpatient sleep study. Qualifiers: Atrial fibrillation type: paroxysmal Qualified Code(s): I48.0 - Paroxysmal atrial fibrillation Discussion w patient/family: The assessment and plan as outlined above was discussed with the patient and/or family members who expressed understanding and agreement. All questions were answered. Thank you for involving us in the care of your patient. Please call with any questions. Subjective Principal diagnosis: New onset afib Interval history: Pt seen in stress lab. Denies chest pain or SOB overnight. Remains in NSR. Objective Vital Signs, Last 4 Hours Temp Pulse Resp BP Pulse Ox 03/30/17 06:58 98 F 73 16 163/75 95 General: Conversant, No Apparent Distress HEENT: Atraumatic, Normocephaly, Mucus Membranes Moist Neck: No JVD, Normal carotid pulses Cardiac: Reg Rate and Rhythm, Normal S1 and S2, No Murmur Lungs: Normal Breath Sounds, No Wheeze, Rales, Rhonchi Neuro: Alert and responsive, No focal deficits noted Abdomen: Soft, Non-Tender Skin: No rashes noted on visualized skin Musculoskeletal: No Chest Wall Tenderness Extremities: No Clubbing, No Cyanosis, Normal Pulses, Other (Trace BLE edema) Results 03/29/17 04:31 03/29/17 04:31 Lab Results 03/29/17 12:26 APTT 44.4 H - EKG Interpretation EKG results cardiology: personally reviewed, normal ECG, sinus rhythm Consult Discharge Plan - Plan Referrals: Óscar Apple Jr, MD [Primary Care Provider] - 04/06/17 10:40 am
[2017-03-30] MEDS: Furosemide 40 MG/4 ML VIAL IVP SCH (11:39)
[2017-03-30] MEDS: Diltiazem CD (24hr) 180 MG CAPSULE PO SCH (11:39)
[2017-03-30] MEDS: Aspirin Enteric Coated 81 MG Tablet PO SCH (11:39)
[2017-03-30] MEDS: Insulin LISPRO 300 UNITS/3 ML VIAL SQ SCH ×4 (11:39→21:45)
--- NOTE | 2017-03-30 17:09 | Internal Med Progress Note ---
Date of Encounter: 03/30/17 Time of Encounter: 17:09 - Assessment and plan (1) New onset atrial fibrillation Current Visit: Yes Status: Acute Assessment and plan: New-onset of atrial fibrillation. On a Cardizem drip. Possible etiology: Obesity hypoventilation syndrome/obstructive sleep apnea Cardiology on the board. We will follow the recommendation 03/30/2017 New-onset of atrial fibrillation. Off Cardizem drip. Tolerating oral Cardizem extremely well. We will continue to follow/monitored (2) Elevated troponin Current Visit: Yes Status: Acute Assessment and plan: Possible demand ischemia 03/30/2017 Underwent cardiac stress test to rule out coronary artery disease as a cause of elevated troponin (3) Diabetes mellitus Current Visit: Yes Status: Acute Assessment and plan: Within acceptable range. Qualifiers: Diabetes mellitus type: type 2 Diabetes mellitus complication status: without complication Diabetes mellitus fci insulin use: without tank terminal gauger use Qualified Code(s): E11.9 - Type 2 diabetes mellitus without complications - Subjective Interval history: Patient seen and examined. Chart reviewed. Patient does not complains of chest pain, shortness of breath, abdominal pain or diarrhea 03/30/2017 seen and examined. Chart reviewed. Patient does not complain chest pain, shortness of breath, nausea or vomiting. - Constitutional Vitals: Temp Pulse Resp BP Pulse Ox 98.1 F 73 16 153/78 92 03/30/17 15:31 03/30/17 15:31 03/30/17 15:31 03/30/17 15:31 03/30/17 15:31 General appearance: Present: A&O X 3, morbidly obese, answers questions appropriately - Head Head exam: Present: atraumatic, normocephalic - Eye Eye exam: Present: PERRL, conjuntiva pink, sclera anicteric Pupils: Present: PERRL - Neck Neck exam general surgery: Present: supple, trachea midline. Absent: lymphadenopathy - Respiratory Respiratory exam: Present: CTAB. Absent: accessory muscle use, rales, rhonchi, wheezes - Cardiovascular Cardiovascular exam: Present: RRR, +S1, +S2. Absent: diastolic murmur, gallop, rubs, systolic murmur - GI/Abdominal GI/Abdominal exam: Present: normal bowel sounds, soft, no peritoneal signs. Absent: distended, tenderness - Extremities Exam Extremities exam: Present: warm, radial pulses palpable and symetrical. Absent : calf tenderness, cyanotic, pedal edema - Neurological Exam Neurological exam: Present: CN II-XII intact, oriented X3, no focal deficits. Absent: pronater drift, facial droop, speech deficit - Skin Skin exam: Present: dry, intact Internal Medicine: Result - Labs CBC & Chem 7: 03/29/17 04:31 03/29/17 04:31 - ABG Interpretation ABG results: PT/INR, D-dimer PT 12.6 Seconds (9.4-12.1) H 03/28/17 12:24 D-Dimer 472 ng/mLFEU (0-500) 03/28/17 08:31 Consult Discharge Plan - Plan Referrals: Óscar Apple Jr, MD [Primary Care Provider] - 04/06/17 10:40 am
[2017-03-30] MEDS: *HR* Rivaroxaban 10 MG TABLET PO SCH (18:30)
[2017-03-31] MEDS: Furosemide 40 MG/4 ML VIAL IVP SCH (08:44)
[2017-03-31] MEDS: Aspirin Enteric Coated 81 MG Tablet PO SCH (08:45)
[2017-03-31] MEDS: Diltiazem CD (24hr) 180 MG CAPSULE PO SCH (08:45)
[2017-03-31] MEDS: Insulin LISPRO 300 UNITS/3 ML VIAL SQ SCH ×4 (08:45→21:18)
--- NOTE | 2017-03-31 09:29 | Nuclear Medicine Stress Report ---
Regadenoson Nuclear 2 day Name: Soren Nails Date of Study: 03/30/2017 Date: 1950 Ht: 68.0 in Medical Record#: [id number] Age: 66 Wt: 348.0 lb Gender: Male Order #: [id number] Location: [facility] Room: [facility] Supervising Provider: Tomas Han CNP Reading Physician: Elizabeth Voss DO Ordering Physician: Ana Barrera CNP Primary Care Physician: Óscar Apple MD Stress Technologist: Lyle Grimes, MATHEW, [facility] Skate Boarder: Man [place] Indications: Chest Pain Impression: Technically challenging 2-day stress test. Unable to rule out ischemia involving the inferior wall (see Findings). No appreciable change in pharmacologic ECG during testing. Normal hemodynamic response. Gated EF = 50%. There is visual TID present. Cardiology service aware of findings. History: Diabetes Hypercholesteremia Stress Test Summary: Stress Test Type: Pharmacologic Regadenoson 0.4mg/5ml given IV Baseline Information: Initial Heart Rate: 73 Blood Pressure: 120/72 Stress Information: Stress Time: 4 min 00 sec Test Terminated Due to (primary): As per protocol Maximum Blood Pressure: 110/64 Maximum Heart Rate: 86 Percent Maximum Heart Rate Achieved: 55 Double Product: 9460 METS Reached: 1 Symptoms: Shortness of breath Nuclear Summary: SPECT myocardial perfusion imaging using Tc99m Sestamibi given intravenously was performed at rest and following cardiac stress testing. The resting images were obtained following initial dose of 34.8 mCi. Following stress an additional dose of 35.2 mCi was given at peak exercise or 30 seconds post regadenoson infusion. Medication Given: Time Medication Dose Units Route Findings: Stress Note * Resting ECG demonstrated normal sinus rhythm with LAFB, IVCD and nonspecific ST abnormalities. * Patient had no chest pain during stress. * Infrequent PACs and a single PVC are seen during testing. * Pharmacologic stress ECG is negative for ischemia at level of heart rate achieved. Hemodynamic responses * Normal hemodynamic responses to pharmacologic stress. Study Quality * Technically difficult/limited 2-day study. Left Ventricle * The left ventricle is dilated. Lung Uptake * There is no evidence of increase lung uptake. TID * There is transient ischemic dilatation. NORMALS * Normal wall motion. Gated EF % * Gated EF = 50%. PERFUSION * There is a medium sized, primarily fixed perfusion defect involving the inferior wall and apex. There is mild worsening of perfusion in this area on stress images. Normal wall motion suggests against the presence of infarct and towards the presence of artifact. However, given worsening of perfusion on stress images, ischemia in this area cannot be ruled out. * Other areas demonstrate normal rest and stress perfusion. Updated by Elizabeth Voss on 03/31/2017 9:19:18 AM electronically signed on 03/31/2017 9:24:25 AM with status of Final
--- NOTE | 2017-03-31 11:17 | Cardiology Progress Note ---
Date of Encounter: 03/31/17 Time of Encounter: 11:10 Assessment and Plan (1) New onset atrial fibrillation Current Visit: Yes Status: Acute Per Cardiology: Newly diagnosed atrial fibrillation with RVR. Suspect paroxysmal as patient was in NSR on 03/26/17 at PCP office. Converted to NSR on cardizem gtt and converted to oral cardizem. Remains in NSR. TSH normal, electrolytes stable. Suspect underlying SONA contributing to AF; recommend outpatient sleep study. CHA2Ds Vasc=3 (DMII, HTN, age--67 next mo). On Xarelto-- will stop for now for [facility] in am d/t abnormal stress results. On asa. (2) Elevated troponin Current Visit: Yes Status: Acute Per Cardiology: Troponin 0.08, 0.06 in the setting of atrial fibrillation with RVR; suspect secondary to demand ischemia. No ischemic ECG changes noted. Chest pain free. Risk factors for CAD include: HTN, HLD, DMII. Non-exercise nuclear stress test in April 2014 was negative for ischemia. TTE shows preserved EF, mild LVH. No significant valvular disease. Current stress test was technically challenging and unable to rule out ischemia involving the inferior wall. Visual 3 times a day noted. There is a medium-sized primate with fixed perfusion defect involving the inferior wall and apex with mild worsening perfusion on stress images, ischemia cannot be ruled out. Gated EF 50%. Recs for [facility] tomorrow-- had breakfast and on Xarelto. (3) CHF (congestive heart failure) Current Visit: Yes Status: Acute Per Cardiology: Mild acute diastolic CHF. likely secondary to afib, HTN, and SONA. Admits to diet high in sodium. Cumulative I&O: - 276mL, on lasix 4omg IV daily. Continue strict I&Os, 2L fluid restriction and Na restriction diet. Check BMP and CBC in am. Qualifiers: Congestive heart failure type: diastolic Congestive heart failure chronicity: acute Qualified Code(s): I50.31 - Acute diastolic (congestive) heart failure Discussion w patient/family: The assessment and plan as outlined above was discussed with the patient who expressed understanding and agreement. All questions were answered. Thank you for involving us in the care of your patient. Please call with any questions. Subjective Principal diagnosis: New onset afib Interval history: Patient denies any chest pain, short of breath, palpitations. Reports fatigue and concerns of not sleeping well due to bed over the past few nights. Reports has used Tylenol PM for insomnia at home. Concern of right groin "mass" that developed within the past 24 hours. Objective Vital Signs, Last 4 Hours Temp Pulse Resp BP Pulse Ox 03/31/17 07:45 97.9 F 71 16 162/69 93 General: Conversant, No Apparent Distress HEENT: Atraumatic, Normocephaly Cardiac: Reg Rate and Rhythm, Normal S1 and S2, No Murmur Lungs: Normal Breath Sounds, No Wheeze, Rales, Rhonchi Neuro: Alert and responsive, No focal deficits noted Abdomen: Soft, Other (obese) Skin: Other (R inguinal approx 2cm in diameter reddened cystlike nodule) Results 03/29/17 04:31 03/29/17 04:31 Laboratory Tests 03/28/17 03/28/17 03/28/17 08:31 08:31 08:31 INR 1.1 D-Dimer 472 Magnesium Troponin I 0.06 H* LDL Cholesterol, Calc TSH 2.743 03/28/17 03/28/17 03/29/17 14:38 21:18 04:31 INR D-Dimer Magnesium 1.7 Troponin I 0.07 H* 0.06 H* LDL Cholesterol, Calc 122 H TSH ITS Impressions Chest X-Ray 03/28/17 08:33 IMPRESSION: Mild pulmonary vascular congestion without overt pulmonary edema. Small bilateral pleural effusions versus chronic pleural thickening, similar to prior exam. D/ / 03/28/2017 09:29:54 Darwin Lynn MD / marya Interpreting Provider: Darwin Lynn MD Intake & Output 03/28/17 03/29/17 03/30/17 03/31/17 23:59 23:59 23:59 23:59 Intake Total 515 / 515 364 / 364 0 / 0 120 / 120 Output Total 400 / 400 575 / 575 0 / 0 300 / 300 Balance 115 / 115 -211 / -211 0 / 0 -180 / -180 Weight 162 kg 161 kg 157.6 kg 159.1 kg Active Medications Acetaminophen (Tylenol) 650 mg PO Q6HR PRN PRN Reason: Mild Pain (1-3) Stop: 09/27/17 12:12 Acetaminophen/Hydrocodone Bitart ([place] 5-325 Mg) 1 tab PO Q4HR PRN PRN Reason: Moderate Pain (4-6) Stop: 09/27/17 12:12 Aspirin (Aspirin Ec) 81 mg PO DAILY [facility] Stop: 09/28/17 09:01 Last Admin: 03/31/17 08:45 Dose: 81 mg Bisacodyl (Dulcolax) 10 mg PO DAILY PRN PRN Reason: Constipation Stop: 09/29/17 17:49 Dextrose/Water (Dextrose 50% (Syg)) 25 ml IVP AD PRN PRN Reason: Hypoglycemia Stop: 09/27/17 12:20 Diltiazem HCl (Cardizem Cd) 360 mg PO DAILY [facility] Stop: 09/28/17 13:31 Last Admin: 03/31/17 08:45 Dose: 360 mg Furosemide (Lasix) 40 mg IVP DAILY [facility] Stop: 09/28/17 09:01 Last Admin: 03/31/17 08:44 Dose: 40 mg Glucagon (Glucagen) 1 mg IM ONCE PRN PRN Reason: Hypoglycemia Stop: 09/27/17 12:20 Glucose (Gluctose) 15 gm PO ONCE PRN PRN Reason: Hypoglycemia Stop: 09/27/17 12:20 Glucose (Gluctose) 30 gm PO ONCE PRN PRN Reason: Hypoglycemia Stop: 09/27/17 12:20 Dextrose (Dextrose 5%) 1,000 mls @ 100 mls/hr IVC .Q10H PRN PRN Reason: HYPOGLYCEMIA Stop: 09/27/17 12:20 Insulin Human Lispro (Humalog) 0 units SQ HS [facility] PRN Reason: Protocol Stop: 09/27/17 21:01 Last Admin: 03/30/17 21:45 Dose: Not Given Insulin Human Lispro (Humalog) 0 units SQ TIDAC [facility] PRN Reason: Protocol Stop: 09/27/17 12:31 Last Admin: 03/31/17 08:45 Dose: 2 units Naloxone HCl (Narcan) 0.4 mg IVP Q2MIN PRN PRN Reason: Opioid Reversal Stop: 09/27/17 12:12 Rivaroxaban (Xarelto) 20 mg PO 1700 [facility] Stop: 09/28/17 14:01 Last Admin: 03/30/17 18:30 Dose: 20 mg - Imaging and Cardiology Stress Test: report reviewed Echo: report reviewed - EKG Interpretation EKG results cardiology: other (Telemetry shows she rate 72, sinus rhythm) Consult Discharge Plan - Plan Referrals: Óscar Apple Jr, MD [Primary Care Provider] - 04/06/17 10:40 am
--- NOTE | 2017-03-31 13:47 | Internal Med Progress Note ---
Date of Encounter: 03/31/17 Time of Encounter: 13:44 - Assessment and plan (1) New onset atrial fibrillation Current Visit: Yes Status: Acute Assessment and plan: New-onset of atrial fibrillation. On a Cardizem drip. Possible etiology: Obesity hypoventilation syndrome/obstructive sleep apnea Cardiology on the board. We will follow the recommendation 03/30/2017 New-onset of atrial fibrillation. Off Cardizem drip. Tolerating oral Cardizem extremely well. We will continue to follow/monitored 03/31/2017 Patient underwent 2 day stress test. Stress test was abnormal. Cardiology on the board. Possible cardiac catheterization tomorrow. Patient is aware of the situation/updates. Family is on the same page. (2) Elevated troponin Current Visit: Yes Status: Acute Assessment and plan: Possible demand ischemia 03/30/2017 Underwent cardiac stress test to rule out coronary artery disease as a cause of elevated troponin (3) Diabetes mellitus Current Visit: Yes Status: Acute Assessment and plan: Within acceptable range. 03/31/2017 Noted that patient has a swelling in his right groin. The swelling is fluctuating. Even though it is a small swelling in view of patient's underlying history of for uncontrolled diabetes, I am concerned about it. Plan: We will get ultrasound of the right groin. Qualifiers: Diabetes mellitus type: type 2 Diabetes mellitus complication status: without complication Diabetes mellitus senior living insulin use: without senior living use Qualified Code(s): E11.9 - Type 2 diabetes mellitus without complications - Subjective Interval history: Patient seen and examined. Chart reviewed. Patient does not complains of chest pain, shortness of breath, abdominal pain or diarrhea 03/30/2017 seen and examined. Chart reviewed. Patient does not complain chest pain, shortness of breath, nausea or vomiting. 03/31/2017 Seen and examined. Chart reviewed. Patient does not complain of chest pain, shortness of breath, nausea or vomiting. Patient has a swelling in his right groin. - Constitutional Vitals: Temp Pulse Resp BP Pulse Ox 97.9 F 74 17 176/67 95 03/31/17 11:52 03/31/17 11:52 03/31/17 11:52 03/31/17 11:52 03/31/17 11:52 General appearance: Present: A&O X 3, morbidly obese, answers questions appropriately - Head Head exam: Present: atraumatic, normocephalic - Eye Eye exam: Present: PERRL, conjuntiva pink, sclera anicteric Pupils: Present: PERRL - Neck Neck exam general surgery: Present: supple, trachea midline. Absent: lymphadenopathy - Respiratory Respiratory exam: Present: CTAB. Absent: accessory muscle use, rales, rhonchi, wheezes - Cardiovascular Cardiovascular exam: Present: RRR, +S1, +S2. Absent: diastolic murmur, gallop, rubs, systolic murmur - GI/Abdominal GI/Abdominal exam: Present: normal bowel sounds, soft, no peritoneal signs. Absent: distended, tenderness - Extremities Exam Extremities exam: Present: warm, radial pulses palpable and symetrical. Absent : calf tenderness, cyanotic, pedal edema - Neurological Exam Neurological exam: Present: CN II-XII intact, oriented X3, no focal deficits. Absent: pronater drift, facial droop, speech deficit - Skin Skin exam: Present: dry, intact Internal Medicine: Result - Labs CBC & Chem 7: 03/29/17 04:31 03/29/17 04:31 - ABG Interpretation ABG results: PT/INR, D-dimer PT 12.6 Seconds (9.4-12.1) H 03/28/17 12:24 D-Dimer 472 ng/mLFEU (0-500) 03/28/17 08:31 Consult Discharge Plan - Plan Referrals: Óscar Apple Jr, MD [Primary Care Provider] - 04/06/17 10:40 am
[2017-03-31] MEDS: ALPRAZolam 0.5 MG TABLET PO PRN (23:34)
[2017-04-01 04:52] LABS: Basophils # 0.1 K/mcL (0.0-0.2); Basophils % 0.5 %; Eosinophils # 0.4 K/mcL (0.0-0.6); Eosinophils % 3.5 %; Hemoglobin 15.3 g/dL (12.9-16.9); Immature Granulocytes % 0.7 % (0-4); Lymphocytes # 2.5 K/mcL (0.6-4.6); Lymphocytes % 20.4 %; Mean Corpuscular HGB Conc 31.9 g/dL (31.6-35.5); Mean Corpuscular Hemoglobin 29.8 pg (28.0-33.3); Mean Corpuscular Volume 93.4 fL (83.0-100.0); Mean Platelet Volume 11.5 fL (9.4-12.4); Monocytes # 1.1 K/mcL (0.0-1.3); Monocytes % 9.4 %; Platelet Count 214 K/mcL (140-400); Red Blood Count 5.14 M/mcL (4.19-5.50); Red Cell Distribution Width 13.2 % (11.5-14.5); Segmented Neutrophils % 65.5 %
[2017-04-01 05:05] LABS: Alanine Aminotransferase 15 Units/L (0-55); Albumin 3.3 g/dL (3.5-5.0); Albumin/Globulin Ratio 0.9 (1.1-2.2); Alkaline Phosphatase 70 Units/L (38-126); Aspartate Amino Transferase 17 Units/L (5-34); BUN/Creatinine Ratio 16 (6-26); Bilirubin,Total 1.2 mg/dL (0.2-1.2); Blood Urea Nitrogen 15 mg/dL (8-26); Calcium 9.5 mg/dL (8.6-10.8); Carbon Dioxide 27 mEq/L (19-29); Chloride 98 mEq/L (98-109); Globulin 3.7 g/dL (2.4-3.5); Glucose 202 mg/dL (70-99); Osmolality,Calculated 289 (280-300); Potassium 3.7 mEq/L (3.5-4.5); Sodium 136 mEq/L (136-145); eGFR For African Americans > 60 (> 60); eGFR For Non-African Americans > 60 (> 60)
[2017-04-01] MEDS: Aspirin Enteric Coated 81 MG Tablet PO SCH ×2 (08:58→16:51)
[2017-04-01] MEDS: Diltiazem CD (24hr) 180 MG CAPSULE PO SCH ×2 (08:59→16:51)
[2017-04-01] MEDS: Insulin LISPRO 300 UNITS/3 ML VIAL SQ SCH ×4 (09:06→21:13)
--- NOTE | 2017-04-01 09:08 | Event Note ---
Date of Encounter: 04/01/17 Time of Encounter: 07:30 - Cardiology Event Note Selected Entries 04/01/17 06:59 04/01/17 08:51 Temperature 97.6 F Pulse Rate 67 Respiratory Rate 16 Blood Pressure 158/73 O2 Sat by Pulse Oximetry 97 Oxygen Delivery Method Room Air Remains sinus rhythm on telemetry. Patient denies any chest pain, short of breath, palpitations. Agreeable to left heart catheterization today. All questions answered. Discussed with primary service, pending further evaluation of suspected right groin abscess. Will avoid access to right groin during catheterization. Further recommendations after catheterization.
[2017-04-01] MEDS: Furosemide 40 MG/4 ML VIAL IVP SCH (09:13)
--- NOTE | 2017-04-01 09:18 | Internal Med Progress Note ---
Date of Encounter: 04/01/17 Time of Encounter: 09:15 - Assessment and plan (1) New onset atrial fibrillation Current Visit: Yes Status: Acute Assessment and plan: New-onset of atrial fibrillation. On a Cardizem drip. Possible etiology: Obesity hypoventilation syndrome/obstructive sleep apnea Cardiology on the board. We will follow the recommendation 03/30/2017 New-onset of atrial fibrillation. Off Cardizem drip. Tolerating oral Cardizem extremely well. We will continue to follow/monitored 03/31/2017 Patient underwent 2 day stress test. Stress test was abnormal. Cardiology on the board. Possible cardiac catheterization tomorrow. Patient is aware of the situation/updates. Family is on the same page. 04/01/2017 Cardiology input appreciated. Noted that patient is scheduled for cardiac catheterization today. Recommended upper extremity approach for cardiac catheterization. (2) Elevated troponin Current Visit: Yes Status: Acute Assessment and plan: Possible demand ischemia 03/30/2017 Underwent cardiac stress test to rule out coronary artery disease as a cause of elevated troponin (3) Diabetes mellitus Current Visit: Yes Status: Acute Assessment and plan: Within acceptable range. 03/31/2017 Noted that patient has a swelling in his right groin. The swelling is fluctuating. Even though it is a small swelling in view of patient's underlying history of for uncontrolled diabetes, I am concerned about it. Plan: We will get ultrasound of the right groin. 04/01/2017 Ultrasound of the right groin shows swelling with possible sinus tract. Surgery consult. Qualifiers: Diabetes mellitus type: type 2 Diabetes mellitus complication status: without complication Diabetes mellitus fdc insulin use: without fdc use Qualified Code(s): E11.9 - Type 2 diabetes mellitus without complications - Subjective Interval history: Patient seen and examined. Chart reviewed. Patient does not complains of chest pain, shortness of breath, abdominal pain or diarrhea 03/30/2017 seen and examined. Chart reviewed. Patient does not complain chest pain, shortness of breath, nausea or vomiting. 03/31/2017 Seen and examined. Chart reviewed. Patient does not complain of chest pain, shortness of breath, nausea or vomiting. Patient has a swelling in his right groin. 04/01/2017 Seen and examined. Chart reviewed. Patient feels much better as compared to yesterday. Denies chest pressure, shortness of breath. Has a swelling in his right groin. Nontender, localized, nonfluctuating - Constitutional Vitals: Temp Pulse Resp BP Pulse Ox 97.6 F 67 16 158/73 97 04/01/17 06:59 04/01/17 06:59 04/01/17 06:59 04/01/17 06:59 04/01/17 06:59 General appearance: Present: A&O X 3, morbidly obese, answers questions appropriately - Head Head exam: Present: atraumatic, normocephalic - Eye Eye exam: Present: PERRL, conjuntiva pink, sclera anicteric Pupils: Present: PERRL - Neck Neck exam general surgery: Present: supple, trachea midline. Absent: lymphadenopathy - Respiratory Respiratory exam: Present: CTAB. Absent: accessory muscle use, rales, rhonchi, wheezes - Cardiovascular Cardiovascular exam: Present: RRR, +S1, +S2. Absent: diastolic murmur, gallop, rubs, systolic murmur - GI/Abdominal GI/Abdominal exam: Present: normal bowel sounds, soft, no peritoneal signs. Absent: distended, tenderness - Extremities Exam Extremities exam: Present: warm, radial pulses palpable and symetrical. Absent : calf tenderness, cyanotic, pedal edema - Neurological Exam Neurological exam: Present: CN II-XII intact, oriented X3, no focal deficits. Absent: pronater drift, facial droop, speech deficit - Skin Skin exam: Present: dry, intact Internal Medicine: Result - Labs CBC & Chem 7: 04/01/17 04:03 04/01/17 04:03 Labs: Short CBC 04/01/17 Range/Units 04:03 WBC 12.1 H (4.3-11.1) K/mcL Hgb 15.3 D (12.9-16.9) g/dL Hct 48.0 (37.5-50.1) % Plt Count 214 (140-400) K/mcL Neutrophils # 8.0 (1.6-8.9) K/mcL BMP 04/01/17 04:03 Sodium 136 Potassium 3.7 Chloride 98 Carbon Dioxide 27 BUN 15 Creatinine 0.93 Glucose 202 H Calcium 9.5 Liver Function 04/01/17 Range/Units 04:03 Total Bilirubin 1.2 (0.2-1.2) mg/dL AST 17 (5-34) Units/L ALT 15 (0-55) Units/L Alkaline Phosphatase 70 (38-126) Units/L Albumin 3.3 L (3.5-5.0) g/dL - ABG Interpretation ABG results: PT/INR, D-dimer PT 12.6 Seconds (9.4-12.1) H 03/28/17 12:24 D-Dimer 472 ng/mLFEU (0-500) 03/28/17 08:31 - Impressions Impressions Abdomen Ultrasound 03/31/17 13:41 IMPRESSION: Findings as above which may represent evolving hematoma if there is history of trauma, complex fluid collection which may be infected, or cystic lesion. Recommend further follow-up if no clinical improvement. D/ / Lula Pinedo MD / Lula Pinedo MD Interpreting Provider: Lula Pinedo MD Consult Discharge Plan - Plan Referrals: Óscar Apple Jr, MD [Primary Care Provider] - 04/06/17 10:40 am
[2017-04-01] MEDS ORDERED: Verapamil 5 MG/2 ML VIAL ONE (11:27)
[2017-04-01] MEDS ORDERED: Heparin 1,000 UNITS/500 mL NS 500 ML ONE (11:28)
[2017-04-01] MEDS ORDERED: Nitroglycerin 1,000 MCG/10 ML VIAL IV ONE (11:28)
[2017-04-01] MEDS ORDERED: 0.9 % Sodium Chloride 2,000 ML ONE (11:28)
[2017-04-01] MEDS ORDERED: *HR* Heparin 10,000 UNIT/10 ML VIAL ONE (11:28)
[2017-04-01] MEDS: Piperacillin/Tazobactam 3.375 GM in D5% in Water (Mini-Bag+) 100 ML IVPB SCH ×2 (13:01→21:14)
--- NOTE | 2017-04-01 13:24 | General Surgery Consult Note ---
Date of Encounter: 04/01/17 Time of Encounter: 11:45 Assessment and Plan (1) Abscess of right groin Current Visit: Yes Status: Acute The area was debrided and packed with iodoform. We will change the iodoform once a day History of Present Illness Consult date: 04/01/17 Reason for consult: other (Abscess right groin) History of present illness: The patient has profound morbid obesity with a body mass index greater than 55. He states he has intermittent abscesses in skin creases. He now has an abscess in his right inguinal crease. On physical examination this is a small abscess that is actively draining. I debrided the overlying skin with pickups and drained a large amount of pus. This will be packed with iodoform. This should resolve with time. Past Med Surg Social Fam HX - Past Medical History Medical history: non-contributory, diabetes Psychiatric history: no psych history - Past Surgical History Surgical History: non-contributory - Social History Smoking Status: Never smoker Smokeless Tobacco Status: No Alcohol use: none Drug use: none - Family History Father Living Status: Hx Family Cardiac Disorders: Yes (Heart disease) Hx Family Cancer: Yes (Prostate cancer) Hx Family Endocrine Disorder: Yes (Diabetes) Mother Living Status: Hx Family Cancer: Yes (Esophageal cancer) Medications and Allergies Acetaminophen/Diphenhydramine [Acetaminophen Pm Caplet] 1 tab PO HS 03/28/17 [ History] Albuterol Sulfate [Proair Hfa] 2 puff IH Q4H PRN 03/28/17 [History] Glimepiride [Amaryl] 2 mg PO QAM 03/28/17 [History] Omeprazole [PriLOSEC] 20 mg PO DAILY 03/28/17 [History] Allergies No Known Allergies Allergy (Verified 03/28/16 11:50) Review of Systems All systems PM: A 10-system review of systems was performed and is negative for pertinent findings except as documented above in the HPI. General Surgery Exam Initial Vital Signs Temp Pulse Resp BP Pulse Ox 97.7 F 136 16 136/108 94 03/28/17 08:27 03/28/17 08:27 03/28/17 08:27 03/28/17 08:27 03/28/17 08:27 - General physical appearance well developed, other (Profound morbid obesity) - Abdomen Abdomen general surgery: Present: bowel sounds present, soft, non tender ( Profound morbid obesity with pannus) - Integumentary Integumentary general surgery: Present: other (Abscess right groin this was locally debrided and packed) - Neurologic Present: CN 2-12 grossly intact, normal coordination, normal sensation - Psychiatric Psychiatric general surgery: Present: appropriate, oriented to person, oriented to place, oriented to time, speech is normal, memory intact Exam Initial Vital Signs Temp Pulse Resp BP Pulse Ox 97.7 F 136 16 136/108 94 03/28/17 08:27 03/28/17 08:27 03/28/17 08:27 03/28/17 08:27 03/28/17 08:27 Results - Labs 04/01/17 04:03 04/01/17 04:03 Abnormal lab results WBC 12.1 K/mcL (4.3-11.1) H 04/01/17 04:03 PT 12.6 Seconds (9.4-12.1) H 03/28/17 12:24 APTT 44.4 Seconds (26.0-36.0) H 03/29/17 12:26 Glucose 202 mg/dL (70-99) H 04/01/17 04:03 POC Glucose 276 (58-89) H 03/31/17 20:11 Troponin I 0.06 ng/mL (0-0.03) H* 03/28/17 21:18 Albumin 3.3 g/dL (3.5-5.0) L 04/01/17 04:03 Globulin 3.7 g/dL (2.4-3.5) H 04/01/17 04:03 Albumin/Globulin Ratio 0.9 (1.1-2.2) L 04/01/17 04:03 Triglycerides 199 mg/dL (< 150) H 03/29/17 04:31 LDL Cholesterol, Calc 122 mg/dL (0-99) H 03/29/17 04:31 VLDL Cholesterol, Calc 40 mg/dL (< 31) H 03/29/17 04:31 HDL Cholesterol 31 mg/dL (40-59) L 03/29/17 04:31 Cholesterol/HDL Ratio 6.2 (0-4.9) H 03/29/17 04:31 Diabetes panel 04/01/17 Range/Units 04:03 Sodium 136 (136-145) mEq/L Potassium 3.7 (3.5-4.5) mEq/L Chloride 98 (98-109) mEq/L Carbon Dioxide 27 (19-29) mEq/L BUN 15 (8-26) mg/dL Creatinine 0.93 (0.72-1.25) mg/dL Glucose 202 H (70-99) mg/dL Calcium 9.5 (8.6-10.8) mg/dL AST 17 (5-34) Units/L ALT 15 (0-55) Units/L Alkaline Phosphatase 70 (38-126) Units/L Albumin 3.3 L (3.5-5.0) g/dL Calcium panel 04/01/17 Range/Units 04:03 Calcium 9.5 (8.6-10.8) mg/dL Albumin 3.3 L (3.5-5.0) g/dL Pituitary panel 04/01/17 Range/Units 04:03 Sodium 136 (136-145) mEq/L Potassium 3.7 (3.5-4.5) mEq/L Chloride 98 (98-109) mEq/L Carbon Dioxide 27 (19-29) mEq/L BUN 15 (8-26) mg/dL Creatinine 0.93 (0.72-1.25) mg/dL Glucose 202 H (70-99) mg/dL Calcium 9.5 (8.6-10.8) mg/dL Adrenal panel 04/01/17 Range/Units 04:03 Sodium 136 (136-145) mEq/L Potassium 3.7 (3.5-4.5) mEq/L Chloride 98 (98-109) mEq/L Carbon Dioxide 27 (19-29) mEq/L BUN 15 (8-26) mg/dL Creatinine 0.93 (0.72-1.25) mg/dL Glucose 202 H (70-99) mg/dL Calcium 9.5 (8.6-10.8) mg/dL Total Bilirubin 1.2 (0.2-1.2) mg/dL AST 17 (5-34) Units/L ALT 15 (0-55) Units/L Alkaline Phosphatase 70 (38-126) Units/L Albumin 3.3 L (3.5-5.0) g/dL All other labs normal. Consult Discharge Plan - Plan Referrals: Óscar Apple Jr, MD [Primary Care Provider] - 04/06/17 10:40 am
[2017-04-01] MEDS ORDERED: 0.9 % Sodium Chloride 1,000 ML ONE (14:19)
[2017-04-01] MEDS ORDERED: *HR* Midazolam HCl 2 MG/2 ML VIAL ONE (14:26)
[2017-04-01] MEDS ORDERED: *HR* FentaNYL (PF) 100 MCG/2 ML VIAL ONE (14:26)
--- NOTE | 2017-04-01 14:40 | Pre-Sedation Evaluation ---
Pre-sedation evaluation - Pre-sedation checklist Date of procedure: 04/01/17 Procedure: LHC +/- PCI Recent Vitals: Last Vital Signs Temp 97.6 F 04/01/17 11:32 Pulse 68 04/01/17 11:32 Resp 16 04/01/17 11:32 BP 177/76 04/01/17 11:32 Pulse Ox 98 04/01/17 11:32 H&P (including ROS) documented in medical record: Yes Previous reaction to sedatives/anesthetics: No Dietary Status: NPO after Midnight Airway Assessment: Patient can open mouth completely, TMJ function normal Dentition: No loose teeth or bridges Possible difficult airway: No ASA Classification *see protocol: CLASS II-Mild systemic disease Plan of Care: Pt appropriate candidate for procedure/moderate/conscious sedation
[2017-04-01] MEDS ORDERED: *HR* Adenosine 6 MG/2 ML VIAL IVP ONE (15:09)
--- NOTE | 2017-04-01 15:34 | Procedure Note ---
Date of procedure: 04/01/17 Pre-op diagnosis: chest pain Post-op diagnosis: same Procedure: Cardiac cath/coronary angiography with FFR LMCA LM: 40% stenosis (difficult to visualize due to body habitus and engagement issues) LAD: no sig CAD RI: no sig CAD RCA: mid 25%, RPDA 25% FFR LMCA 0.97 (IC NTG + IC adenosine) Plan: Aggressive medical management and life style modifications Anesthesia: local Surgeon: Yousif Scott Pathology: none sent Condition: stable Disposition: floor
--- NOTE | 2017-04-01 15:58 | Invasive Diagnostic Lab Proc ---
Name: Soren Nails Date of Study: 04/01/2017 Date: 1950 Ht: 68.1in Medical Record#: [id number] Age: 66 Wt: 356.93lb Gender: Male BSA: 2.62 Order #: [id number] BMI: 54.09 Physicians Procedure Physician: Yousif Scott MD Referring MD: Referring MD: Staff Name Position [facility] 02:19 PM Adia Myers RN Rehabilitation Coordinator 02:20 PM Sites, Eun RT (R) 02:20 PM Gricel Quiroga RN Monitor 02:20 PM Rosemary Ayala RN Rehabilitation Coordinator 02:20 PM Indications Indication Abnormal Test - Stress Procedures Performed Procedure CORONARY ARTERY ANGIO S\\T\\I Pre-Procedure Checklist Informed consent is complete signed and on chart. H\\T\\P is on chart. ID band is on and ID verified with patient. Patient NPO for procedure The procedure was described for the patient and questions were answered. Blood Pressure: 158/73 ECG is on chart. Rhythm: NSR Plan of Care Patient will tolerate the procedure without complications. Adequate level of comfort will be maintained. Hemodynamics will remain stable Patient will recover from procedure without complications. Respiratory function will be maintained. Cardiac rhythm will remain stable. Patient temperature will be maintained. Patient and/or family have verbalized understanding of the procedure. Patient Education Chief Complaint/Reason for Test: Cardiac Cath Developmental Category: Adult (18-64 years) Developmentally Appropriate for Age: Yes Learning Barriers: None Education Needs: Procedure Education Method: Verbal Information Taught: Cardiac Cath Educational Evaluation: Able to repeat information Intravenous Access Time IV Size Location DC'd Fluid/Drip Rate Units RN 02:25 PM 18g 1 /" Patent On Arrival Lt Antecubital 0.9NaCl 25 ml/hr Gricel Quiroga RN Allergies NONE KNOWN No Known Allergies Vital Signs Time BP (mmHg) HR (bpm) O2 Sat. RR (bpm) LOC 02:26 PM 158 / 73 67 97 % 16 5 = Fully awake and oriented or at pre-proc level 02:35 PM / % 5 = Fully awake and oriented or at pre-proc level 02:35 PM / % 4 = Oriented but drowsy 02:50 PM / % 5 = Fully awake and oriented or at pre-proc level 03:05 PM / % 5 = Fully awake and oriented or at pre-proc level 03:20 PM / % 5 = Fully awake and oriented or at pre-proc level 02:31 PM 167 / 82 78 97 % 32 02:36 PM 168 / 86 176 96 % 3 02:41 PM 163 / 76 69 93 % 24 02:46 PM 154 / 72 85 94 % 02:51 PM 163 / 70 78 94 % 44 02:56 PM 169 / 81 76 95 % 03:01 PM 168 / 79 77 95 % 25 03:06 PM 168 / 75 73 94 % 16 03:11 PM 155 / 71 76 94 % 19 03:16 PM 157 / 68 73 95 % 17 03:21 PM 160 / 70 75 94 % 21 03:26 PM 156 / 85 75 95 % 17 03:31 PM 167 / 77 74 % 28 03:35 PM / % Procedural Medications Time Medication Dose Units Method Given By 02:33 PM Oxygen 2 L/min nasal cannula Rosemary Ayala RN 02:33 PM Versed 2 mg Intravenous Gricel Quiroga RN 02:34 PM Fentanyl 50 mcg Intravenous Gricel Quiroga RN 02:43 PM Lidocaine 2% 2 ml Subcutaneous Yousif Scott MD 02:45 PM Heparin 4000 units Nitroglycerin 200 mcg Verapamil 2.5 mg Intraarterial Yousif Scott MD 02:49 PM Oxygen 4 L/min nasal cannula Gricel Quiroga RN 03:07 PM Nitroglycerin 150 mcg Intracoronary Yousif Scott MD 03:10 PM Adenosine 40 mcg Intracoronary Yousif Scott MD 03:11 PM Adenosine 80 mcg Intracoronary Yousif Scott MD 03:13 PM Heparin 4000 units Intravenous 03:13 PM Heparin 4000 units Intravenous Gricel Quiroga RN 03:13 PM Adenosine 100 mcg Intracoronary Yousif Scott MD ASA Classification: CLASS II- Mild systemic disease (i.e. well-controlled diabetes, hypertension, asthma, cigarette smoking) Ronak Score Preprocedure Postprocedure Activity 2- Moves 4 extremities sustained head lift Activity 2- Moves 4 extremities sustained head lift Circulation 2- SBP +/= 20 points of pre-anesthetic level Circulation 2- SBP +/= 20 points of pre-anesthetic level Consciousness 2- Awake and alert oriented x 3 Consciousness 2- Awake and alert oriented x 3 O2 Saturation 2- Able to maintain O2 satruation of 92% on room air O2 Saturation 2- Able to maintain O2 satruation of 92% on room air Respiratory 2- Able to deep breathe and cough well Respiratory 2- Able to deep breathe and cough well Total Score 10 Total Score 10 Contrast Agent: Isovue Diagnostic Contrast: 227 ml Total Contrast: 227 ml Fluoro Dose: 2157 mGy Activated Clotting Time Time Seconds to Clot 03:25 PM 250 Procedure Log Time Note Enter By 02:16 PM CathStat 02:19 PM Pt arrived to [employer] [facility] 14[facility] 02:20 PM Miguel Pagan RN Position: Scrub Time in: 14:19 [facility] 02:20 PM Adia Myers RN Position: Monitorr Time in: : [facility] 02:20 PM Eun Kruger RT (R) Position: Time in: : [facility] 02:20 PM Gricel Quiroga RN Position: Rehabilitation Coordinator Time in: 14:20 [facility] 02:21 PM Rosemary Ayala RN Position: MonitorTime in: : [facility] 02:21 PM Patient charges- Angio tray pack, Navilyst 3mm J, Pulse Oximetry and ACIST tubing and transducer [facility] 02:21 PM Case Delayed No [facility] : PM Meet and greet completed [facility] 02:26 PM Sign in performed according to hospital policy. [facility] 02:26 PM Procedure start 14:26 [facility] 02:30 PM Vitals capture started with the following parameters, Patient=Adult, Interval=5 min, Initial Fqwhtsri=300 mmHg, Deflation Rate=5 mmHg, Cuff placed on Left Arm 02:31 PM HR=78 bpm, DZRZ=351/82 mmhg, SpO2=97.0 %, Resp=32 B/min, Comment=SR 02:33 PM Hair removed from procedure site in holding area using clippers. Right wrist prepped with Chloraprep by Rosemary Ayala RN, safety strap applied then patient was draped. Skin intact. [facility] 02:33 PM Time: 14:33 Oxygen on at 2 L/min per nasal cannula by Rosemary Ayala RN [facility] 02:34 PM Time: 14:33 Versed 1 mg Intravenous Given by Gricel Quiroga RN [facility] 02:34 PM Time: 14:34 Fentanyl 50 mcg Intravenous Given by Gricel Quiroga RN 02:35 PM Time: 14:35 Patient comfortable and pain free: Yes [facility] 02[facility] PM Time: 14:35LOC: 5 = Fully awake and oriented or at pre-proc level [facility]paadelita 02:35 PM Clinical Presentation: Unstable angina [facility] 02:36 PM EK=825 bpm, BEKO=070/86 mmhg, SpO2=96.0 %, Resp=3 B/min, Comment=SR 02:41 PM HR=69 bpm, GKHE=214/76 mmhg, SpO2=93.0 %, Resp=24 B/min, Comment=SR 02:41 PM ASA Class CLASS II- Mild systemic disease (i.e. well-controlled diabetes, hypertension, asthma, cigarette smoking) [facility] 02:43 PM Pressure channel 1 zeroed. 02:43 PM Time out performed according to [facility] policy [facility] 02:44 PM Time: 14:43 2 ml Lidocaine 2% to right radial Subcutaneous Given by Yousif Scott MD [facility] 02:44 PM Access obtained by percutaneous puncture. 6Fr 11cm Terumo Glidesheath sheath placed in right Radial artery. [id number] [facility] 02:45 PM Time: 14:45 Patient given 4,000 units Heparin, 200 mcg Nitroglycerin, and 2.5 mg Verapamil Intraarterial by Yousif Scott MD [facility] 02:46 PM HR=85 bpm, GXZY=602/72 mmhg, SpO2=94.0 %, Comment=SR 02:47 PM 0.035 145cm Navilyst 3mmJ wire [id number] [facility] 02:48 PM 5Fr FL3.5 catheter inserted over the wire [id number] [facility] 02:48 PM Recorded Pressure: Ao, HR=73, Condition=Condition 1 (Aorta) Ao 129/70/94 02:49 PM Time: 14:49 Oxygen on at 4 L/min per nasal cannula by Gricel Quiroga RN 02:50 PM Time: 14:35 Patient comfortable and pain free: Yes marcelle 02:50 PM Time: 14:35LOC: 4 = Oriented but drowsy marcelle 02:51 PM HR=78 bpm, QRVP=641/70 mmhg, SpO2=94.0 %, Resp=44 B/min, Comment=SR 02:52 PM Recorded Pressure: Ao, HR=74, Condition=Condition 1 (Aorta) Ao 115/49/74 02:52 PM LCA angiography performed in multiple views. lparsley 02:56 PM HR=76 bpm, CREY=899/81 mmhg, SpO2=95.0 %, Comment=SR 02:56 PM Catheter removed lparsley 02:56 PM 5Fr FR 4 catheter inserted over the wire DNC lparsley 02:57 PM RCA angiography performed in multiple views. lparsley 02:58 PM Recorded Pressure: Ao, HR=65, Condition=Condition 1 (Aorta) Ao 110/44/65 02:58 PM Catheter removed lparsley 02:59 PM 6Fr JL3.5 Runway guide catheter was used to cannulate the PCI vessel successfully. reused? No lparsley 02:59 PM Inflation device was opened. lparsley 03:00 PM Virginia Verrata Wire advanced to target lesion. LMCA lparsley 03:01 PM HR=77 bpm, MJMC=636/79 mmhg, SpO2=95 %, Resp=25 B/min 03:01 PM Pressure channel 3 zeroed. 03:05 PM Time: 14:50LOC: 5 = Fully awake and oriented or at pre-proc level lparsley 03:05 PM Time: 14:50 Patient comfortable and pain free: Yes lparsley 03:05 PM Pressure channel 3 equalized to channel 1. 03:06 PM Pressure channel 3 equalized to channel 1. 03:06 PM Pressure channel 3 equalized to channel 1. 03:06 PM HR=73 bpm, KVNI=613/75 mmhg, SpO2=94 %, Resp=16 B/min 03:06 PM Pressure channel 3 equalized to channel 1. 03:08 PM Time: 15:07 Nitroglycerin 150 mcg Intracoronary Given by Yousif Scott MD 03:11 PM Recorded Pressure: Ao, Wire, HR=76, Condition=Condition 1 (Aorta) Ao 63/7/39, (FFR Wire) Wire 130/49/78 03:11 PM Time: 15:10 Adenosine 40 mcg administered Intracoronary by MD marcelle Lai 03:11 PM FFR: Condition=Condition 1 03:11 PM Recorded Pressure: Ao, Wire, HR=77, Condition=Condition 1 (Aorta) Ao 126/35/69, (FFR Wire) Wire 125/38/71 03:11 PM HR=76 bpm, UIJQ=076/71 mmhg, SpO2=94 %, Resp=19 B/min 03:12 PM Time: 15:11 Adenosine 80 mcg administered Intracoronary by Yousif Scott MD lpahetal 03:12 PM FFR: Value=1.02, Condition=Condition 1 03:12 PM Recorded Pressure: Ao, Wire, FFR=1.02, HR=72, Condition=Condition 1 (Aorta) Ao 124/40/70, (FFR Wire) Wire 123/46/72 03:13 PM Time: 15:13 Heparin 4000 units Intravenous Given by Gricel Quiroga RN [facility] 03:13 PM Time: 15:13 Adenosine 100 mcg administered Intracoronary by MD marcelle Lai 03:13 PM FFR: Value=1.06, Condition=Condition 1 03:13 PM Recorded Pressure: Ao, Wire, FFR=1.06, HR=73, Condition=Condition 1 (Aorta) Ao 111/31/60, (FFR Wire) Wire 114/38/65 03:15 PM FFR Measurement: 0.97 [facility] 03:15 PM Flow Wire removed intact [facility] 03:15 PM LCA angiography performed in multiple views. lparsley 03:16 PM HR=73 bpm, MJFC=280/68 mmhg, SpO2=95 %, Resp=17 B/min 03:16 PM [ Start FFR sample ] 03:18 PM Guide catheter removed intact. [facility] 03:19 PM JL3.5 reinserted [facility] 03:20 PM Time: 15:05 Patient comfortable and pain free: Yes lparsley 03:20 PM Time: 15:05LOC: 5 = Fully awake and oriented or at pre-proc level lparsley 03:21 PM HR=75 bpm, OMXZ=391/70 mmhg, SpO2=94.0 %, Resp=21 B/min, Comment=SR 03:25 PM At 15:25 the ACT was 250 seconds. lparsley 03:26 PM Recorded Pressure: Ao, HR=75, Condition=Condition 1 (Aorta) Ao 119/53/79 03:26 PM HR=75 bpm, KGVH=533/85 mmhg, SpO2=95 %, Resp=17 B/min 03:26 PM Catheter removed lparsley 03:28 PM Procedure completed at 15:28 lparsley 03:29 PM Sign out completed: Radiation Dose 2157.21 mGy Fluoro Time: 11.3 Isovue 370 - 200ml contrast 227 ml given by Yousif Scott MD. Complications: NoneCardiac Rehab Consult needed: NoConfirmed administered medications: Yes lparsley 03:29 PM Isovue 370 - 500ml,1 Bottle(s) used. lparsley 03:30 PM Arterial sheath pulled, Vasc Band closure device used and was Successful. lparsley 03:30 PM 25 ml air in Vasc Band. lparsley 03:30 PM Post ECG NSR lparsley 03:30 PM Recorded ECG: HR=74 Condition=Condition 1 03:31 PM HR=74 bpm, QXPS=864/77 mmhg, Resp=28 B/min 03:31 PM Post Blood Pressure 167/77 lparsley 03:31 PM 15:31 Post Pulses Rt Radial 1+ lparsley 03:32 PM Information taught Cardiac Cath, IVUS/Flowire, and Vasc Band lparsley 03:32 PM Education needs Procedure, Plan of Care, Safe \\T\\ Effective Use of Medications, and Responsibilities of Patient in Care lparsley 03:32 PM Learning barriers :None lparsley 03:32 PM Education Methods Verbal lparsley 03:32 PM Education evaluation Able to repeat information lparsley 03:33 PM Site status No bleeding/hematoma - Rt Wrist as reported by Miguel Pagan RN at 15:32 lparsley 03:33 PM Family placed in consult room. lparsley 03:33 PM Fluoro Time: 11.3 lparsley 03:34 PM Isovue 370 - 200ml contrast 227 ml given by Yousif Scott MD. lparsley 03:34 PM Radiation Dose 2157.21 mGy lparsley 03:35 PM Time: 15:20LOC: 5 = Fully awake and oriented or at pre-proc level lparsley 03:35 PM Time: 15:20 Patient comfortable and pain free: Yes lparsley 03:39 PM Report given to [place] CHIN Pt taken to E Room #26. 15:37 lparsley 03:39 PM Coronary Dominance: right lparsley 03:40 PM Lesion found in Mid RCA. Pre Stenosis: 25 lparsley 03:40 PM Lesion found in LMCA. Pre Stenosis: 40 Pre VERONICA Flow: 3: Complete and Brisk Flow/Perfusion lparsley 03:40 PM Lesion found in Right PDA. Pre Stenosis: 25 Pre VERONICA Flow: 3: Complete and Brisk Flow/Perfusion lparsley 03:41 PM Left Main Coronary Artery with 40% stenosis lparsley 03:41 PM Proximal Left Anterior Descending Coronary Artery with 0% stenosis. lparsley 03:41 PM Circumflex, Obtuse Marginal, Left Posterior Descending, and Left Posterolateral Coronary Arteries with 0 % stenosis. lparsley 03:41 PM Right Coronary, Right Posterior Descending Arteries with Right Posterolateral and Acute Marginal branches with 25 % stenosis. lparsley 03:41 PM Ramus with 0% stenosis. lparsley 03:50 PM Time: 15:35LOC: lparsley 03:50 PM Time: 15:35 Patient comfortable and pain free: lparsley 03:51 PM Patient out of room: 15:51 lparsley Complications Complication None Hemodynamics Pressures Site Systolic/A Wave Diastolic/V Wave Mean AO 129 70 94 AO 115 49 74 AO 110 44 65 AO 63 7 39 Wire 130 49 78 AO 126 35 69 Wire 125 38 71 AO 124 40 70 Wire 123 46 72 AO 111 31 60 Wire 114 38 65 AO 119 53 79 Post Procedure Information Blood Pressure: 167/77 mmHg Rhythm: NSR Closure Device Time Device Success/Fail 04/01/2017 3:30:00 PM Mechanical Compression Successful Site Checks Time Location Status Staff Sheath In? Note 03:32 PM Rt Wrist No bleeding/hematoma Miguel Pagan RN Pulses Time Site Pre-Procedure Post-Procedure Note 04/01/2017 2:25:00 PM Bilateral radial 2+ 04/01/2017 2:26:00 PM Bilateral DP \\T\\ PT 1+ 04/01/2017 2:26:00 PM Rt Radial Normal plethysmography's Test 3:31:00 PM Rt Radial 1+ Updated by Adia Myers RN on 04/01/2017 3:52:49 PM electronically signed on 04/01/2017 3:53:33 PM with status of Final
[2017-04-01] MEDS: Sulfamethoxazole/Trimeth DS 1 EACH TABLET PO SCH (21:12)
[2017-04-01] MEDS: ALPRAZolam 0.5 MG TABLET PO PRN (22:56)
[2017-04-02] MEDS: Piperacillin/Tazobactam 3.375 GM in D5% in Water (Mini-Bag+) 100 ML IVPB SCH (05:17)
[2017-04-02 05:26] LABS: Basophils % 0.3 %; Eosinophils # 0.4 K/mcL (0.0-0.6); Eosinophils % 3.7 %; Hematocrit 49.6 % (37.5-50.1); Hemoglobin 15.8 g/dL (12.9-16.9); Immature Granulocytes % 0.7 % (0-4); Lymphocytes # 2.3 K/mcL (0.6-4.6); Mean Corpuscular HGB Conc 31.9 g/dL (31.6-35.5); Mean Corpuscular Volume 94.3 fL (83.0-100.0); Mean Platelet Volume 11.4 fL (9.4-12.4); Monocytes % 8.9 %; Neutrophils # 7.7 K/mcL (1.6-8.9); Platelet Count 213 K/mcL (140-400); Red Blood Count 5.26 M/mcL (4.19-5.50); Red Cell Distribution Width 13.2 % (11.5-14.5); Segmented Neutrophils % 66.4 %
[2017-04-02 05:50] LABS: Alanine Aminotransferase 17 Units/L (0-55); Albumin 3.4 g/dL (3.5-5.0); Albumin/Globulin Ratio 0.9 (1.1-2.2); Alkaline Phosphatase 72 Units/L (38-126); Aspartate Amino Transferase 18 Units/L (5-34); BUN/Creatinine Ratio 14 (6-26); Bilirubin,Total 0.9 mg/dL (0.2-1.2); Blood Urea Nitrogen 15 mg/dL (8-26); Calcium 9.4 mg/dL (8.6-10.8); Carbon Dioxide 28 mEq/L (19-29); Chloride 98 mEq/L (98-109); Globulin 3.7 g/dL (2.4-3.5); Glucose 230 mg/dL (70-99); Osmolality,Calculated 288 (280-300); Sodium 135 mEq/L (136-145); Total Protein 7.1 g/dL (6.0-8.3); eGFR For African Americans > 60 (> 60); eGFR For Non-African Americans > 60 (> 60)
[2017-04-02 07:13] VITALS: BP 172/83
[2017-04-02] MEDS: Aspirin Enteric Coated 81 MG Tablet PO SCH (09:02)
[2017-04-02] MEDS: Furosemide 40 MG/4 ML VIAL IVP SCH (09:02)
[2017-04-02] MEDS: Sulfamethoxazole/Trimeth DS 1 EACH TABLET PO SCH (09:02)
[2017-04-02] MEDS: Diltiazem CD (24hr) 180 MG CAPSULE PO SCH (09:02)
[2017-04-02] MEDS: Insulin LISPRO 300 UNITS/3 ML VIAL SQ SCH (09:03)
--- NOTE | 2017-04-02 09:20 | General Surgery Progress Note ---
Date of Encounter: 04/02/17 Time of Encounter: 09:18 - Assessment and Plan (1) Abscess of right groin Status: Acute Status post debridement. Wound is currently packed with iodoform Plan: Change iodoform packing once daily Patient will require home health on discharge to assist with wound care. Patient should have a follow-up appointment with Dr. Zavala at the wound clinic Subjective Patient reports: no new complaints, feels better Narrative: Patient seen and examined today. Abscess remains packed with iodoform. Patient has profound morbid obesity with a BMI greater than 55 and has a history of intermittent abscesses in his skin creases. He will require home health at discharge. Objective Vital Signs - Last 8 Hours Temp Pulse Resp BP Pulse Ox 04/02/17 07:09 97.7 F 66 18 172/83 95 04/02/17 05:22 98.1 F 69 16 159/79 90 04/02/17 05:02 98.1 F 69 16 159/79 90 Intake and Output 04/01/17 04/02/17 04/02/17 23:59 07:59 15:59 Intake Total 220 / 220 300 / 300 Output Total 0 / 0 380 / 380 Balance 220 / 220 -80 / -80 Intake: IV Fluids 100 / 100 100 / 100 Zosyn 3.375 GM In 100 / 100 100 / 100 Dextrose 5% (Minibag+) 100 ML 100 ML @ 25 mls/hr IVPB Q8H [facility] Rx#: [id number] Oral 120 / 120 200 / 200 Output: Urine 0 / 0 380 / 380 Other: Weight 157.8 kg Blood Glucose* 253 218 Patient Weight 04/02/17 23:59 Weight 157.8 kg - General physical appearance well developed, no distress, obese - Abdomen Abdomen: Present: bowel sounds present, soft, non tender Additional Comments: Profound morbid obesity with pannus - Integumentary other (Assess in the right groin status post local debridement. Is currently packed with iodoform) - Neurologic normal coordination, normal sensation - Psychiatric oriented to time, oriented to person, oriented to place, speech is normal, memory intact - Labs 04/02/17 04:57 04/02/17 04:57 Diabetes panel 04/02/17 Range/Units 04:57 Sodium 135 L (136-145) mEq/L Potassium 4.0 (3.5-4.5) mEq/L Chloride 98 (98-109) mEq/L Carbon Dioxide 28 (19-29) mEq/L BUN 15 (8-26) mg/dL Creatinine 1.04 (0.72-1.25) mg/dL Glucose 230 H (70-99) mg/dL Calcium 9.4 (8.6-10.8) mg/dL AST 18 (5-34) Units/L ALT 17 (0-55) Units/L Alkaline Phosphatase 72 (38-126) Units/L Albumin 3.4 L (3.5-5.0) g/dL Calcium panel 04/02/17 Range/Units 04:57 Calcium 9.4 (8.6-10.8) mg/dL Albumin 3.4 L (3.5-5.0) g/dL Pituitary panel 04/02/17 Range/Units 04:57 Sodium 135 L (136-145) mEq/L Potassium 4.0 (3.5-4.5) mEq/L Chloride 98 (98-109) mEq/L Carbon Dioxide 28 (19-29) mEq/L BUN 15 (8-26) mg/dL Creatinine 1.04 (0.72-1.25) mg/dL Glucose 230 H (70-99) mg/dL Calcium 9.4 (8.6-10.8) mg/dL Adrenal panel 04/02/17 Range/Units 04:57 Sodium 135 L (136-145) mEq/L Potassium 4.0 (3.5-4.5) mEq/L Chloride 98 (98-109) mEq/L Carbon Dioxide 28 (19-29) mEq/L BUN 15 (8-26) mg/dL Creatinine 1.04 (0.72-1.25) mg/dL Glucose 230 H (70-99) mg/dL Calcium 9.4 (8.6-10.8) mg/dL Total Bilirubin 0.9 (0.2-1.2) mg/dL AST 18 (5-34) Units/L ALT 17 (0-55) Units/L Alkaline Phosphatase 72 (38-126) Units/L Albumin 3.4 L (3.5-5.0) g/dL Consult Discharge Plan - Plan Instructions: Sulfamethoxazole/Trimethoprim (By mouth), Diltiazem (By mouth), Aspirin (By mouth), Atorvastatin (By mouth), Rivaroxaban (By mouth), Heart Failure (DC), Atrial Fibrillation (DC), Chest Pain (DC), Diabetes Mellitus Type 2 in Adults (DC) Additional Instructions: [facility] is set up to do your dressing changes to your right groin. Referrals: Aramis Zavala MD [Partnered Physician] - 04/13/17 9:15 am (This appt is in [facility], not in Dr. Zavala's office. [facility]'s phone # is [phone]) Tomas Han CNP [Advanced Practice Nurse] - (Office will call you with appt date & time. They are setting this up.) Óscar Apple Jr, MD [Primary Care Provider] - 04/06/17 10:40 am Prescriptions: Aspirin Enteric Coated [Aspirin EC] 81 mg PO DAILY #30 tablet. Atorvastatin Calcium 80 mg PO DAILY #30 tablet Diltiazem CD (24hr) [Cardizem CD] 360 mg PO DAILY #60 cap.er.24h Rivaroxaban [Xarelto] 20 mg PO DAILY #30 tablet Sulfamethoxazole/Trimeth DS [Bactrim Ds] 1 each PO BID #14 tablet - Attending Attestation I examined this patient and my medical decision-making was reviewed with the FISH WARDEN/PA/Advanced Practice Nurse/Resident Physician. I agree with the documented findings, disposition and treatment plan as described except to the extent set forth below. The patient is seen and evaluated on morning rounds. The abscess is being packed with iodoform and should be packed with iodoform once a day secondary dressing of gauze and tape. The abscess should resolve. Ready for discharge Aramis Zavala MD FACS
--- NOTE | 2017-04-02 10:43 | Discharge Summary ---
Date of Encounter: 04/02/17 Time of Encounter: 10:25 - Discharge Diagnosis (1) New onset atrial fibrillation Priority: Primary Status: Acute (2) Abscess of right groin Priority: Primary Status: Acute (3) Elevated troponin Priority: Primary Status: Acute (4) Diabetes mellitus Priority: Secondary Status: Acute Qualifiers: Diabetes mellitus type: type 2 Diabetes mellitus complication status: without complication Diabetes mellitus jail insulin use: without terminal system operator use Qualified Code(s): E11.9 - Type 2 diabetes mellitus without complications - Discharge Medications Prescriptions: Aspirin Enteric Coated [Aspirin EC] 81 mg PO DAILY #30 tablet.dr Fuentes CD (24hr) [Cardizem CD] 360 mg PO DAILY #60 cap.er.24h Rivaroxaban [Xarelto] 20 mg PO DAILY #30 tablet Sulfamethoxazole/Trimeth DS [Bactrim Ds] 1 each PO BID #14 tablet Home Medications: Acetaminophen/Diphenhydramine [Acetaminophen Pm Caplet] 1 tab PO HS 03/28/17 [ History] Albuterol Sulfate [Proair Hfa] 2 puff IH Q4H PRN 03/28/17 [History] Glimepiride [Amaryl] 2 mg PO QAM 03/28/17 [History] Omeprazole [PriLOSEC] 20 mg PO DAILY 03/28/17 [History] Aspirin Enteric Coated [Aspirin EC] 81 mg PO DAILY #30 tablet. 04/02/17 [Rx] Diltiazem CD (24hr) [Cardizem CD] 360 mg PO DAILY #60 cap.er.24h 04/02/17 [Rx] Rivaroxaban [Xarelto] 20 mg PO DAILY #30 tablet 04/02/17 [Rx] Sulfamethoxazole/Trimeth DS [Bactrim Ds] 1 each PO BID #14 tablet 04/02/17 [Rx] Allergies/Adverse Reactions: Allergies No Known Allergies Allergy (Verified 03/28/16 11:50) Procedures/tests Complete & Pending: Procedures Performed prior 72 hours Category Date Time Status CL Cardiac Catheterization [CL] Routine Processing Technician 04/01/17 12:00 Ordered CL Cardiac Catheterization [CL] Routine Processing Technician 04/01/17 12:00 Stop Req US abdomen limited [US] Routine Exams 03/31/17 13:41 Completed Date of admission: 03/28/17 12:11 Primary care physician: Óscar Apple Jr, MD Consults: 03/28/17 12:20 Consult to Cardiology [CONS] Routine Comment: Consulting Provider: Cardiology Korin Reason for Consult: new onset afib Time Notified: 12:21 Call Completed: Yes 04/01/17 08:55 Consult to Surgery [CONS] Routine Consulting Provider: Surgery Korin Surgical Reason for Consult: ?abscess in groin ( right) Call Completed: Yes Discharging clinician: Claude Armendariz - Patient Status Disposition: Home Health Service Condition: Fair Functional capacity at discharge: independent ambulation Overall status at discharge: patient is progressing back to baseline - Discharge Instructions Follow Up With: Aramis Zavala MD [Partnered Physician] - Óscar Apple Jr, MD [Primary Care Provider] - 04/06/17 10:40 am - Diet and Activity Activity: increase activity as tolerated Diet: diabetic diet Interval History: Mr. Nails is a 66 year old male past medical history of diabetes. According to the patient has been experiencing increasing shortness of breath as well as weight gain. He states he has gained approximately 20 pounds since August. On Sunday he had difficulty climbing up a flight of stairs which normally he can do without any problems. He was experiencing shortness of breath on exertion and was profusely sweating. Afterwards he had to rest for some time in air conditioning. He went to his primary care on Sunday and EKG was obtained and according to primary care records he was in sinus rhythm with occasional PVC. Lab work was obtained and on 03/27/17 troponin was 0.08 patient was advised to go to the ER for any chest pain. Today patient was hospital obtaining Holter monitor when he began to experience left-sided chest pain he described as his heart was flipped flopping he felt as if his heart was going to jump out of his chest. He was short of breath. He presented to the ER for evaluation. According to ER records patient's EKG revealed A. fib with RVR rate of 130. Patient was given Cardizem bolus as well as started on Cardizem drip his rate came down to 108. Lab work revealed troponin of 0.06 patient was given aspirin chest x-ray revealed some pulmonary congestion with slight pleural effusion bilaterally. He was admitted for further workup and evaluation presently the patient denies any chest pain or shortness of breath he is in atrial fib with a rate of 108 to 115. His lung sounds are clear heart sounds irregular with S1-S2 no rubs clicks gallops murmurs noted. He does have +1 pitting edema up to knees bilaterally. Presently he appears to be hemodynamically stable. Hospital course: Mr. Nails is a 66 year old male Patient was hospitalized. He was evaluated by cardiology. Cardiology started Cardizem drip. Overall extended-release Cardizem started. Patient's heart rate was controlled. Patient was started on anticoagulation. Patient underwent stress test. His stress test was positive. Patient underwent cardiac catheterization. Cardiac catheterization was negative for any obstructive coronary lesion. Noted that patient has a right groin abscess. Surgery evaluated the patient. Bedside incision and drainage was done. Spoke to surgery this morning and as per surgery patient can resume his anticoagulation. Plan: Patient can go home today. Home health will follow up for wound dressing. Medication prescribed and signed prescription given to the patient. Patient will see his primary care provider in next 1-2 weeks. Patient will see cardiology in next 1-2 weeks. Patient will see Dr. Zavala in wound clinic either this week or early next week. At the time of discharge patient does not have any question, consumed, update our recommendation - Time Spent with Patient Total time spent providing and/or coordinating discharge services: - Constitutional Vitals: Temp Pulse Resp BP Pulse Ox 97.7 F 66 18 172/83 95 04/02/17 07:09 04/02/17 07:09 04/02/17 07:09 04/02/17 07:09 04/02/17 07:09 General appearance: Present: A&O X 3, morbidly obese, answers questions appropriately - Head Head exam: Present: atraumatic, normocephalic - Eye Eye exam: Present: PERRL, conjuntiva pink, sclera anicteric Pupils: Present: PERRL - Neck Neck exam general surgery: Present: supple, trachea midline. Absent: lymphadenopathy - Respiratory Respiratory exam: Present: CTAB. Absent: accessory muscle use, rales, rhonchi, wheezes - Cardiovascular Cardiovascular exam: Present: RRR, +S1, +S2. Absent: diastolic murmur, gallop, rubs, systolic murmur - GI/Abdominal GI/Abdominal exam: Present: normal bowel sounds, soft, no peritoneal signs. Absent: distended, tenderness - Extremities Exam Extremities exam: Present: warm, radial pulses palpable and symetrical. Absent : calf tenderness, cyanotic, pedal edema - Neurological Exam Neurological exam: Present: CN II-XII intact, oriented X3, no focal deficits. Absent: pronater drift, facial droop, speech deficit - Skin Skin exam: Present: dry, intact
--- NOTE | 2017-04-02 11:03 | Physician Discharge Referral ---
Home Health/Hosp Referral Info Transfer to: Home Health - Diagnosis (1) New onset atrial fibrillation Priority: Primary Status: Acute (2) Abscess of right groin Priority: Primary Status: Acute (3) Elevated troponin Priority: Primary Status: Acute (4) Diabetes mellitus Priority: Secondary Status: Acute - Respiratory Orders Smoking Cessation: Smoking cessation has been advised. For more information, call the [place] Tobacco Quit Line at 7-655-HZMY-NOW. - Services Needed Following services are medically necessary services: Nursing (wound dressing in right groin), Home Health Aide - Transfer Medications Prescriptions: Aspirin Enteric Coated [Aspirin EC] 81 mg PO DAILY #30 tablet.dr Alfredo STACY (24hr) [Cardizem CD] 360 mg PO DAILY #60 cap.er.24h Rivaroxaban [Xarelto] 20 mg PO DAILY #30 tablet Sulfamethoxazole/Trimeth DS [Bactrim Ds] 1 each PO BID #14 tablet Home Medications: Acetaminophen/Diphenhydramine [Acetaminophen Pm Caplet] 1 tab PO HS 03/28/17 [ History] Albuterol Sulfate [Proair Hfa] 2 puff IH Q4H PRN 03/28/17 [History] Glimepiride [Amaryl] 2 mg PO QAM 03/28/17 [History] Omeprazole [PriLOSEC] 20 mg PO DAILY 03/28/17 [History] Aspirin Enteric Coated [Aspirin EC] 81 mg PO DAILY #30 tablet. 04/02/17 [Rx] Diltiazem CD (24hr) [Cardizem CD] 360 mg PO DAILY #60 cap.er.24h 04/02/17 [Rx] Rivaroxaban [Xarelto] 20 mg PO DAILY #30 tablet 04/02/17 [Rx] Sulfamethoxazole/Trimeth DS [Bactrim Ds] 1 each PO BID #14 tablet 04/02/17 [Rx] Allergies/Adverse Reactions: Allergies No Known Allergies Allergy (Verified 03/28/16 11:50) Certification: Further, I certify that my clinical findings support that this patient is homebound (i.e. absences from home require considerable and taxing effort and are for medical reasons or buddhism services or infrequently or short duration when for other reasons) because: Homebound Reason: Patient requires assistance of a person or device to safely leave home Attestation: My signature below is to certify that this patient is under my care and that I, or nurse practitioner, or a physician's respiratory care assistant working with me, has a face-to -face encounter with this patient.
--- NOTE | 2017-04-02 11:13 | Cardiology Progress Note ---
Date of Encounter: 04/02/17 Time of Encounter: 11:12 Assessment and Plan (1) Elevated troponin Current Visit: Yes Status: Acute Per Cardiology: Troponin 0.08, 0.06 in the setting of atrial fibrillation with RVR; suspect secondary to demand ischemia. No ischemic ECG changes noted. Chest pain free. LHC showed 40% stenosis in the LMCA, FFR 0.97. Minima disease otherwise. Medical management recommended. Continue aspirin and add statin. No bb at this time. He converted to NSR on cardizem and is now on oral cardizem with occasional HR as low as 45 bpm. Avg HR 77 bpm. (2) CHF (congestive heart failure) Current Visit: Yes Status: Acute Per Cardiology: Mild acute diastolic CHF. likely secondary to afib, HTN, and SONA. Admits to diet high in sodium. Cumulative I&O: - 276mL. Now euvolemic on exam. Low sodium diet stress. Qualifiers: Congestive heart failure type: diastolic Congestive heart failure chronicity: acute Qualified Code(s): I50.31 - Acute diastolic (congestive) heart failure (3) A-fib Current Visit: Yes Status: Acute Newly diagnosed atrial fibrillation with RVR; unclear chronicity. Suspect paroxysmal as patient was in NSR on 03/26/17 at PCP office. Converted to NSR on cardizem gtt and converted to oral cardizem. Remains in NSR. TSH normal, electrolytes stable. Avg HR 77 bpm NSR over last 12 hours. Minimum HR 45 bpm 1620 yesterday, HR 45 bpm at 0730 this morning. No afib seen. HR currently in the 60's. CHA2Ds Vasc=3 (DMII, HTN, age--65 next mo). Xarelto started during stay.. Suspect underlying SONA contributing to AF; recommend outpatient sleep study. Qualifiers: Atrial fibrillation type: paroxysmal Qualified Code(s): I48.0 - Paroxysmal atrial fibrillation Discussion w patient/family: The assessment and plan as outlined above was discussed with the patient and/or family members who expressed understanding and agreement. All questions were answered. Thank you for involving us in the care of your patient. Please call with any questions. Subjective Principal diagnosis: New onset afib Interval history: Pt seen in stress lab. Denies chest pain or SOB overnight. Remains in NSR. Objective Vital Signs Temp Pulse Resp BP Pulse Ox 04/02/17 07:09 97.7 F 66 18 172/83 95 04/02/17 05:22 98.1 F 69 16 159/79 90 04/02/17 05:02 98.1 F 69 16 159/79 90 04/02/17 00:50 98.1 F 70 17 151/89 90 04/01/17 21:30 98.4 F 75 20 152/91 97 04/01/17 16:18 98.1 F 74 16 165/114 97 Intake and Output 04/01/17 04/02/17 04/02/17 23:59 07:59 15:59 Intake Total 220 / 220 300 / 300 120 / 120 Output Total 0 / 0 380 / 380 Balance 220 / 220 -80 / -80 120 / 120 Intake: IV Fluids 100 / 100 100 / 100 Zosyn 3.375 GM In 100 / 100 100 / 100 Dextrose 5% (Minibag+) 100 ML 100 ML @ 25 mls/hr IVPB Q8H [facility] Rx#: [id number] Oral 120 / 120 200 / 200 120 / 120 Output: Urine 0 / 0 380 / 380 Other: Meal Breakfast Percent of Meal Consumed 90% Weight 157.8 kg Blood Glucose* 253 218 Patient Weight 04/02/17 23:59 Weight 157.8 kg General: Conversant, No Apparent Distress, Other (obese male) HEENT: Atraumatic, Normocephaly, Mucus Membranes Moist Neck: No JVD, Normal carotid pulses Cardiac: Other (Apical irregular) Lungs: Normal Breath Sounds, No Wheeze, Rales, Rhonchi Neuro: Alert and responsive, No focal deficits noted Abdomen: Soft, Non-Tender Skin: No rashes noted on visualized skin Musculoskeletal: No Chest Wall Tenderness Extremities: No Clubbing, No Cyanosis, No Edema, Normal Pulses, Other (right wrist dressing removed) Results 04/02/17 04:57 04/02/17 04:57 Lab Results 04/02/17 04/02/17 04:57 04:57 WBC 11.6 H Hgb 15.8 Hct 49.6 Plt Count 213 Sodium 135 L Potassium 4.0 Chloride 98 Carbon Dioxide 28 BUN 15 Creatinine 1.04 Glucose 230 H Calcium 9.4 Total Bilirubin 0.9 AST 18 ALT 17 Alkaline Phosphatase 72 Consult Discharge Plan - Plan Instructions: Sulfamethoxazole/Trimethoprim (By mouth), Diltiazem (By mouth), Aspirin (By mouth), Atorvastatin (By mouth), Rivaroxaban (By mouth), Heart Failure (DC), Atrial Fibrillation (DC), Chest Pain (DC), Diabetes Mellitus Type 2 in Adults (DC) Referrals: Aramis Zavala MD [Partnered Physician] - 04/17/17 8:55 am Óscar Apple Jr, MD [Primary Care Provider] - 04/06/17 10:40 am Prescriptions: Aspirin Enteric Coated [Aspirin EC] 81 mg PO DAILY #30 tablet. Atorvastatin Calcium 80 mg PO DAILY #30 tablet Diltiazem CD (24hr) [Cardizem CD] 360 mg PO DAILY #60 cap.er.24h Rivaroxaban [Xarelto] 20 mg PO DAILY #30 tablet Sulfamethoxazole/Trimeth DS [Bactrim Ds] 1 each PO BID #14 tablet
== END 2017-04-02 14:00 | disposition home health service (06) | DRG 264 ==
LOC: EMEROO 08:24 → 2NENU 08:24
PROVIDERS: ADMIT Hospitalist; ATTEND Internal Medicine

== ENCOUNTER 2019-12-01 14:08 | Observation (INO) ==
[2019-12-01 14:59] LABS: Hematocrit 47.9 % (37.5-50.1); Hemoglobin 15.2 g/dL (12.9-16.9); Mean Corpuscular HGB Conc 31.7 g/dL (31.6-35.5); Mean Corpuscular Hemoglobin 28.6 pg (28.0-33.3); Mean Platelet Volume 10.7 fL (9.4-12.4); Platelet Count 198 K/mcL (140-400); Red Blood Count 5.32 M/mcL (4.19-5.50); Red Cell Distribution Width 16.8 % (11.5-14.5); White Blood Count 10.2 K/mcL (4.3-11.1)
[2019-12-01 15:04] LABS: INR 1.5; Prothrombin Time 17.1 Seconds (9.4-12.1)
[2019-12-01 15:06] LABS: Activated Partial Thrombo Time 38.2 Seconds (26.0-36.0)
[2019-12-01 15:11] LABS: Bilirubin,Urine Negative (Negative); Blood,Urine Trace (Negative); Clarity,Urine Clear (Clear); Color,Urine Yellow (Yellow); Glucose,Urine (UA) >=1000 mg/dL (Normal); Ketones,Urine Trace mg/dL (Negative); Leukocyte Esterase,Urine Negative (Negative); Nitrite,Urine Negative (Negative); Protein,Urine 30 mg/dL (Neg-Trace); Specific Gravity,Urine > 1.030 (1.010-1.025); Urobilinogen,Urine Normal (Normal)
[2019-12-01 15:14] LABS: Bacteria,Urine None Seen per hpf (None-Few); Hyaline Casts,Urine None Seen per lpf (None-Few); RBC,Urine 0-3 per hpf (0-3); Squamous Epithelial Cell,Urine Few per lpf (None-Few); WBC,Urine 0-3 per hpf (0-3)
[2019-12-01 15:24] LABS: Lymphocytes # 2.2 K/mcL (0.6-4.6); Neutrophils # 6.9 K/mcL (1.6-8.9)
[2019-12-01 15:25] LABS: Platelet Estimate Normal (Normal)
[2019-12-01 15:26] LABS: Alanine Aminotransferase 11 Units/L (7-52); Albumin/Globulin Ratio 1.1 (1.1-2.2); Alkaline Phosphatase 89 Units/L (34-104); Aspartate Amino Transferase 18 Units/L (13-39); BUN/Creatinine Ratio 15 (6-26); Bilirubin,Direct 0.4 mg/dL (0.0-0.2); Bilirubin,Indirect 0.7 mg/dL (0.0-1.0); Bilirubin,Total 1.1 mg/dL (0.3-1.0); Blood Urea Nitrogen 14 mg/dL (8-23); Calcium 9.6 mg/dL (8.6-10.3); Carbon Dioxide 25 mEq/L (23-29); Chloride 97 mEq/L (98-107); Globulin 3.6 g/dL (2.4-3.5); Glucose 158 mg/dL (70-105); Osmolality,Calculated 282 (280-300); Sodium 134 mEq/L (136-145); Total Protein 7.6 g/dL (6.4-8.9); Troponin I 0.04 ng/mL (< 0.04); eGFR For African Americans > 60 (> 60); eGFR For Non-African Americans > 60 (> 60)
[2019-12-01] MEDS ORDERED: cefTRIAXone 1,000 MG in 0.9 % Sodium Chloride Mini Bag 100 ML IVPB ONE (15:30)
[2019-12-01] MEDS ORDERED: Azithromycin 500 MG in 0.9 % Sodium Chloride 250 ML IVPB ONE (15:33)
[2019-12-01] MEDS ORDERED: Naloxone 0.4 MG/ML INJ IVP PRN (16:28)
[2019-12-01] MEDS ORDERED: *HR* Dextrose 50 % in Water (Syg) 50 ML SYRINGE IVP PRN (16:31)
[2019-12-01] MEDS ORDERED: D5% in Water 1,000 ML IVC PRN (16:31)
[2019-12-01] MEDS ORDERED: Dextrose Gel 15 GM/37.5 ML TUBE PO PRN ×2 (16:31)
[2019-12-01] MEDS: *HR* Rivaroxaban 10 MG TABLET PO SCH (20:10)
[2019-12-01] MEDS ORDERED: Melatonin 3 MG TABLET PO PRN (23:45)
[2019-12-02] MEDS: Gabapentin 400 MG CAPSULE PO SCH ×3 (00:08→22:47)
[2019-12-02] MEDS: Artificial Tears SOLN 15 ML BOTTLE BOTH EYES SCH ×5 (00:30→20:53)
[2019-12-02 03:18] LABS: Hematocrit 45.5 % (37.5-50.1); Hemoglobin 14.7 g/dL (12.9-16.9); Mean Corpuscular HGB Conc 32.3 g/dL (31.6-35.5); Mean Corpuscular Hemoglobin 28.3 pg (28.0-33.3); Mean Corpuscular Volume 87.7 fL (83.0-100.0); Platelet Count 220 K/mcL (140-400); Red Blood Count 5.19 M/mcL (4.19-5.50); Red Cell Distribution Width 16.6 % (11.5-14.5)
[2019-12-02 03:43] LABS: BUN/Creatinine Ratio 16 (6-26); Blood Urea Nitrogen 13 mg/dL (8-23); Calcium 9.2 mg/dL (8.6-10.3); Carbon Dioxide 25 mEq/L (23-29); Chloride 98 mEq/L (98-107); Glucose 124 mg/dL (70-105); Osmolality,Calculated 282 (280-300); Potassium 3.9 mEq/L (3.5-5.1); Sodium 135 mEq/L (136-145); eGFR For African Americans > 60 (> 60); eGFR For Non-African Americans > 60 (> 60)
[2019-12-02] MEDS ORDERED: GuaiFENesin Liq 200 MG/10 ML UDC PO PRN (07:25)
[2019-12-02] MEDS: Insulin LISPRO 300 UNITS/3 ML VIAL SQ SCH ×3 (08:28→16:56)
[2019-12-02] MEDS: Diltiazem CD (24hr) 240 MG CAPSULE PO SCH (08:37)
[2019-12-02] MEDS ORDERED: Azithromycin 500 MG in 0.9 % Sodium Chloride 250 ML IVPB SCH (12:00)
[2019-12-02] MEDS: cefTRIAXone 1,000 MG in Water for inj. (sterile) 10 ML IVP SCH (12:35)
[2019-12-02] MEDS: *HR* Rivaroxaban 10 MG TABLET PO SCH (16:56)
[2019-12-02] MEDS ORDERED: Gabapentin 400 MG CAPSULE PO SCH (21:00)
[2019-12-03 06:44] LABS: Hemoglobin 15.9 g/dL (12.9-16.9); Mean Corpuscular HGB Conc 32.4 g/dL (31.6-35.5); Mean Corpuscular Hemoglobin 28.5 pg (28.0-33.3); Mean Corpuscular Volume 87.8 fL (83.0-100.0); Mean Platelet Volume 10.6 fL (9.4-12.4); Platelet Count 261 K/mcL (140-400); Red Blood Count 5.58 M/mcL (4.19-5.50); Red Cell Distribution Width 17.1 % (11.5-14.5); White Blood Count 11.9 K/mcL (4.3-11.1)
[2019-12-03 07:04] LABS: BUN/Creatinine Ratio 19 (6-26); Blood Urea Nitrogen 15 mg/dL (8-23); Calcium 9.4 mg/dL (8.6-10.3); Carbon Dioxide 24 mEq/L (23-29); Chloride 98 mEq/L (98-107); Glucose 160 mg/dL (70-105); Osmolality,Calculated 290 (280-300); Sodium 138 mEq/L (136-145); eGFR For African Americans > 60 (> 60); eGFR For Non-African Americans > 60 (> 60)
[2019-12-03 08:01] VITALS: BP 172/72
[2019-12-03] MEDS: Diltiazem CD (24hr) 240 MG CAPSULE PO SCH (08:33)
[2019-12-03] MEDS: Gabapentin 400 MG CAPSULE PO SCH (08:33)
[2019-12-03] MEDS: cefTRIAXone 1,000 MG in Water for inj. (sterile) 10 ML IVP SCH (08:33)
[2019-12-03] MEDS: Insulin LISPRO 300 UNITS/3 ML VIAL SQ SCH (08:41)
[2019-12-03] MEDS: Artificial Tears SOLN 15 ML BOTTLE BOTH EYES SCH (08:41)
== END 2019-12-03 11:34 | disposition home or self-care (01) ==
LOC: EMEROOARM 14:08 → 3BNU 14:08
PROVIDERS: ADMIT Family Medicine; ATTEND Family Medicine

== ENCOUNTER 2020-07-24 11:40 | Inpatient (IN) ==
[2020-07-24 13:28] LABS: Basophils % 0.3 %; Hematocrit 49.6 % (37.5-50.1); Hemoglobin 15.7 g/dL (12.9-16.9); Mean Corpuscular HGB Conc 31.7 g/dL (31.6-35.5); Mean Corpuscular Hemoglobin 29.2 pg (28.0-33.3); Mean Corpuscular Volume 92.4 fL (83.0-100.0); Red Blood Count 5.37 M/mcL (4.19-5.50)
[2020-07-24 13:29] LABS: Eosinophils % 0.5 %; Immature Granulocytes % 0.8 % (0-4); Immature Platelets 6.2 % (1.1-6.1); Lymphocytes # 1.2 K/mcL (0.6-4.6); Lymphocytes % 32.6 %; Mean Platelet Volume 10.5 fL (9.4-12.4); Monocytes # 0.4 K/mcL (0.0-1.3); Monocytes % 11.6 %; Platelet Count 111 K/mcL (140-400); Red Cell Distribution Width 15.7 % (11.5-14.5); Segmented Neutrophils % 54.2 %; White Blood Count 3.7 K/mcL (4.3-11.1)
[2020-07-24 13:45] LABS: INR 1.1; Prothrombin Time 12.3 Seconds (9.4-12.1)
[2020-07-24 13:48] LABS: Activated Partial Thrombo Time 35.2 Seconds (26.0-36.0)
[2020-07-24 13:49] LABS: BUN/Creatinine Ratio 12 (6-26); Blood Urea Nitrogen 10 mg/dL (8-23); Calcium 8.8 mg/dL (8.6-10.3); Carbon Dioxide 25 mEq/L (23-29); Chloride 102 mEq/L (98-107); Glucose 122 mg/dL (70-105); Osmolality,Calculated 282 (280-300); Potassium 3.7 mEq/L (3.5-5.1); Sodium 136 mEq/L (136-145); eGFR For African Americans > 60 (> 60); eGFR For Non-African Americans > 60 (> 60)
[2020-07-24 13:50] LABS: Troponin I 0.03 ng/mL (< 0.04)
[2020-07-24] MEDS ORDERED: Azithromycin 250 MG TABLET PO ONE (14:40)
[2020-07-24] MEDS ORDERED: methylPREDNISolone 125 MG/2 ML VIAL IVP ONE (14:40)
[2020-07-24] MEDS ORDERED: Ondansetron 4 MG/2 ML VIAL IVP PRN (16:00)
[2020-07-24] MEDS ORDERED: Naloxone 0.4 MG/ML INJ IVP PRN (16:00)
[2020-07-24] MEDS: 0.9 % Sodium Chloride 1,000 ML IVC SCH (16:00)
[2020-07-24] MEDS ORDERED: Dextrose Gel 15 GM/37.5 ML TUBE PO PRN ×2 (16:04)
[2020-07-24] MEDS ORDERED: D5% in Water 1,000 ML IVC PRN (16:04)
[2020-07-24] MEDS ORDERED: *HR* Dextrose 50 % in Water (Vial) 50 ML VIAL IVP PRN (16:04)
[2020-07-24] MEDS ORDERED: Ipratropium/Albuterol Neb 3 ML IH PRN (16:06)
[2020-07-24 16:13] LABS: Estimated Average Glucose 154 mg/dl
[2020-07-24 16:40] LABS: Adenovirus Not Detected (Not Detect); Coronavirus 229E Not Detected (Not Detect); Coronavirus HKU1 Not Detected (Not Detect); Coronavirus NL63 Not Detected (Not Detect); Coronavirus OC43 Not Detected (Not Detect)
[2020-07-24 16:41] LABS: Bordetella Pertussis Not Detected (Not Detect); Chlamydophila pneumoniae Not Detected (Not Detect); Human Metapneumovirus Not Detected (Not Detect); Human Rhinovirus/Enterovirus Not Detected (Not Detect); Influenza A Subtype 2009 H1 Not Detected (Not Detect); Influenza B Not Detected (Not Detect); Mycoplasma pneumoniae Not Detected (Not Detect); Parainfluenza Virus 1 Not Detected (Not Detect); Parainfluenza Virus 2 Not Detected (Not Detect); Parainfluenza Virus 3 Not Detected (Not Detect); Parainfluenza Virus 4 Not Detected (Not Detect); Respiratory Syncytial Virus Not Detected (Not Detect)
[2020-07-24] MEDS: Gabapentin 400 MG CAPSULE PO SCH (20:05)
[2020-07-24] MEDS: cefTRIAXone 1,000 MG in Water for inj. (sterile) 10 ML IVP SCH (20:07)
[2020-07-24] MEDS: Insulin LISPRO 300 UNITS/3 ML VIAL SQ SCH ×2 (20:11)
[2020-07-24] MEDS: Dexamethasone 4 MG/ML VIAL IVP SCH (20:22)
[2020-07-25] MEDS ORDERED: Melatonin 3 MG TABLET PO ONE ×2 (01:13→23:15)
[2020-07-25] MEDS: 0.9 % Sodium Chloride 1,000 ML IVC SCH (04:53)
[2020-07-25 05:59] LABS: Basophils % 0.6 %; Immature Granulocytes % 1.2 % (0-4)
[2020-07-25 06:01] LABS: Hemoglobin 17.1 g/dL (12.9-16.9); Immature Platelets 5.8 % (1.1-6.1); Lymphocytes # 0.6 K/mcL (0.6-4.6); Mean Corpuscular HGB Conc 31.1 g/dL (31.6-35.5); Mean Corpuscular Hemoglobin 28.7 pg (28.0-33.3); Mean Corpuscular Volume 92.3 fL (83.0-100.0); Mean Platelet Volume 10.3 fL (9.4-12.4); Monocytes # 0.2 K/mcL (0.0-1.3); Monocytes % 8.7 %; Neutrophils # 0.9 K/mcL (1.6-8.9); Platelet Count 126 K/mcL (140-400); Red Blood Count 5.96 M/mcL (4.19-5.50); Red Cell Distribution Width 15.4 % (11.5-14.5); Segmented Neutrophils % 52.5 %; White Blood Count 1.7 K/mcL (4.3-11.1)
[2020-07-25 06:19] LABS: BUN/Creatinine Ratio 16 (6-26); Blood Urea Nitrogen 11 mg/dL (8-23); Calcium 9.2 mg/dL (8.6-10.3); Carbon Dioxide 26 mEq/L (23-29); Chloride 104 mEq/L (98-107); Glucose 162 mg/dL (70-105); Magnesium 1.8 mg/dL (1.6-2.6); Osmolality,Calculated 293 (280-300); Phosphorous 3.4 mg/dL (2.7-4.5); Potassium 4.1 mEq/L (3.5-5.1); Sodium 140 mEq/L (136-145); eGFR For African Americans > 60 (> 60); eGFR For Non-African Americans > 60 (> 60)
[2020-07-25 06:25] LABS: Platelet Estimate Decreased (Normal)
[2020-07-25] MEDS: Insulin LISPRO 300 UNITS/3 ML VIAL SQ SCH ×4 (08:10→22:57)
[2020-07-25] MEDS: cefTRIAXone 1,000 MG in Water for inj. (sterile) 10 ML IVP SCH (08:12)
[2020-07-25] MEDS: DilTIAZem CD (24hr) 240 MG CAP.ER.24H PO SCH (08:13)
[2020-07-25] MEDS: Dexamethasone 4 MG/ML VIAL IVP SCH (08:13)
[2020-07-25] MEDS: Gabapentin 400 MG CAPSULE PO SCH ×2 (08:13→22:53)
[2020-07-25] MEDS ORDERED: Azithromycin 500 MG in 0.9 % Sodium Chloride 250 ML IVPB SCH (09:00)
[2020-07-25] MEDS ORDERED: *HR* Rivaroxaban 10 MG TABLET PO SCH (12:00)
[2020-07-26 07:05] LABS: Basophils % 0.3 %; Hematocrit 52.7 % (37.5-50.1); Hemoglobin 16.9 g/dL (12.9-16.9); Immature Granulocytes % 0.4 % (0-4); Lymphocytes % 13.9 %; Mean Corpuscular HGB Conc 32.1 g/dL (31.6-35.5); Mean Corpuscular Hemoglobin 29.3 pg (28.0-33.3); Mean Corpuscular Volume 91.5 fL (83.0-100.0); Mean Platelet Volume 10.6 fL (9.4-12.4); Monocytes # 0.8 K/mcL (0.0-1.3); Monocytes % 11.2 %; Neutrophils # 5.3 K/mcL (1.6-8.9); Platelet Count 158 K/mcL (140-400); Red Blood Count 5.76 M/mcL (4.19-5.50); Red Cell Distribution Width 15.4 % (11.5-14.5); Segmented Neutrophils % 74.2 %
[2020-07-26 07:07] LABS: White Blood Count 7.1 K/mcL (4.3-11.1)
[2020-07-26] MEDS: cefTRIAXone 1,000 MG in Water for inj. (sterile) 10 ML IVP SCH (07:16)
[2020-07-26] MEDS: Dexamethasone 4 MG/ML VIAL IVP SCH (07:16)
[2020-07-26] MEDS: DilTIAZem CD (24hr) 240 MG CAP.ER.24H PO SCH ×2 (07:17→08:02)
[2020-07-26] MEDS: Gabapentin 400 MG CAPSULE PO SCH (07:17)
[2020-07-26 07:24] LABS: Alanine Aminotransferase 17 Units/L (7-52); Albumin 3.9 g/dL (3.5-5.7); Albumin/Globulin Ratio 1.3 (1.1-2.2); Alkaline Phosphatase 74 Units/L (34-104); Aspartate Amino Transferase 20 Units/L (13-39); BUN/Creatinine Ratio 23 (6-26); Bilirubin,Total 0.6 mg/dL (0.3-1.0); Blood Urea Nitrogen 16 mg/dL (8-23); Calcium 9.3 mg/dL (8.6-10.3); Carbon Dioxide 27 mEq/L (23-29); Chloride 105 mEq/L (98-107); Glucose 156 mg/dL (70-105); Osmolality,Calculated 294 (280-300); Potassium 4.1 mEq/L (3.5-5.1); Sodium 140 mEq/L (136-145); Total Protein 6.9 g/dL (6.4-8.9); eGFR For African Americans > 60 (> 60); eGFR For Non-African Americans > 60 (> 60)
[2020-07-26] MEDS: Insulin LISPRO 300 UNITS/3 ML VIAL SQ SCH (07:52)
[2020-07-26 08:07] VITALS: BP 153/69
== END 2020-07-26 11:27 | disposition home or self-care (01) | DRG 177 ==
LOC: 2NENU 11:40 → EMEROOARM 11:40 → SUATTDRO 16:50 → 2NENU 18:40
PROVIDERS: ADMIT Family Medicine; ATTEND Family Medicine

== ENCOUNTER 2022-02-10 01:43 | Observation (INO) ==
[2022-02-10] MEDS ORDERED: predniSONE 20 MG TABLET PO ONE (02:08)
[2022-02-10] MEDS ORDERED: Ipratropium/Albuterol Neb 3 ML IH ONE (02:08)
[2022-02-10 02:58] LABS: Basophils % 0.3 %; Eosinophils # 0.4 K/mcL (0.0-0.6); Eosinophils % 3.7 %; Hematocrit 50.8 % (37.5-50.1); Hemoglobin 16.4 g/dL (12.9-16.9); Immature Granulocytes % 0.4 % (0-4); Lymphocytes # 2.8 K/mcL (0.6-4.6); Lymphocytes % 23.7 %; Mean Corpuscular HGB Conc 32.3 g/dL (31.6-35.5); Mean Corpuscular Hemoglobin 29.4 pg (28.0-33.3); Mean Corpuscular Volume 91.2 fL (83.0-100.0); Mean Platelet Volume 11.5 fL (9.4-12.4); Monocytes # 1.2 K/mcL (0.0-1.3); Monocytes % 10.5 %; Neutrophils # 7.3 K/mcL (1.6-8.9); Platelet Count 233 K/mcL (140-400); Red Blood Count 5.57 M/mcL (4.19-5.50); Red Cell Distribution Width 12.8 % (11.5-14.5); Segmented Neutrophils % 61.4 %; White Blood Count 11.8 K/mcL (4.3-11.1)
[2022-02-10 03:07] LABS: INR 1.6; Prothrombin Time 17.6 Seconds (9.4-12.1)
[2022-02-10 03:10] LABS: Activated Partial Thrombo Time 48.3 Seconds (26.0-36.0)
[2022-02-10 03:14] LABS: Alanine Aminotransferase 12 Units/L (7-52); Albumin 4.1 g/dL (3.5-5.7); Albumin/Globulin Ratio 1.5 (1.1-2.2); Alkaline Phosphatase 82 Units/L (34-104); Aspartate Amino Transferase 15 Units/L (13-39); BUN/Creatinine Ratio 12 (6-26); Bilirubin,Direct 0.1 mg/dL (0.0-0.2); Bilirubin,Indirect 0.6 mg/dL (0.0-1.0); Bilirubin,Total 0.7 mg/dL (0.3-1.0); Blood Urea Nitrogen 11 mg/dL (8-23); Calcium 9.5 mg/dL (8.6-10.3); Carbon Dioxide 28 mEq/L (23-29); Chloride 101 mEq/L (98-107); Globulin 2.8 g/dL (2.4-3.5); Glucose 127 mg/dL (70-105); Osmolality,Calculated 287 (280-300); Potassium 3.8 mEq/L (3.5-5.1); Sodium 138 mEq/L (136-145); Total Protein 6.9 g/dL (6.4-8.9); Troponin I 0.04 ng/mL (< 0.04); eGFR For African Americans > 60 (> 60); eGFR For Non-African Americans > 60 (> 60)
[2022-02-10 03:17] LABS: Influenza A PCR Negative (Negative); Influenza B PCR Negative (Negative); Resp. Syncytial Virus PCR Negative (Negative)
[2022-02-10 03:18] LABS: SARS-CoV-2 by PCR (In House) Negative (Negative)
[2022-02-10] MEDS ORDERED: Azithromycin 500 MG in 0.9 % Sodium Chloride 250 ML IVPB ONE (03:28)
[2022-02-10] MEDS ORDERED: cefTRIAXone 1,000 MG in 0.9 % Sodium Chloride 10 ML IVP ONE (03:28)
[2022-02-10] MEDS ORDERED: Ondansetron 4 MG/2 ML VIAL IVP PRN (04:38)
[2022-02-10] MEDS ORDERED: Naloxone 0.4 MG/ML INJ IVP PRN (04:38)
[2022-02-10] MEDS ORDERED: Melatonin 3 MG TABLET PO PRN (04:38)
[2022-02-10] MEDS ORDERED: *HR* Dextrose 50 % in Water (Syg) 50 ML SYRINGE IVP PRN (05:02)
[2022-02-10] MEDS ORDERED: D5% in Water 1,000 ML IVC PRN (05:02)
[2022-02-10] MEDS ORDERED: Dextrose 4 GM Chewable Tablets PO PRN ×2 (05:02)
[2022-02-10 05:39] LABS: Adenovirus Not Detected (Not Detect); Bordetella Pertussis Not Detected (Not Detect); Chlamydophila pneumoniae Not Detected (Not Detect); Coronavirus 229E Not Detected (Not Detect); Coronavirus HKU1 Not Detected (Not Detect); Coronavirus NL63 Not Detected (Not Detect); Coronavirus OC43 Not Detected (Not Detect); Human Metapneumovirus Not Detected (Not Detect); Human Rhinovirus/Enterovirus Not Detected (Not Detect); Influenza A Subtype 2009 H1 Not Detected (Not Detect); Influenza B Not Detected (Not Detect); Mycoplasma pneumoniae Not Detected (Not Detect); Parainfluenza Virus 1 Not Detected (Not Detect); Parainfluenza Virus 2 Not Detected (Not Detect); Parainfluenza Virus 3 Not Detected (Not Detect); Parainfluenza Virus 4 Not Detected (Not Detect); Respiratory Syncytial Virus Not Detected (Not Detect); SARS-CoV-2 Not Detected (Not Detect)
[2022-02-10] MEDS ORDERED: GuaiFENesin/Pseudophedrine TABLET PO PRN (05:40)
[2022-02-10] MEDS ORDERED: Perflutren Lipid Microsphere 1.3 ML in 0.9 % Sodium Chloride 8.7 ML IVP PRN (05:47)
[2022-02-10] MEDS ORDERED: Albuterol 2.5 MG/3 ML NEBULIZER IH PRN (05:58)
[2022-02-10] MEDS: predniSONE 20 MG TABLET PO SCH (07:53)
[2022-02-10] MEDS: Insulin LISPRO 300 UNITS/3 ML VIAL SUBQ SCH ×3 (07:54→16:49)
[2022-02-10] MEDS: Ipratropium/Albuterol Neb 3 ML IH SCH ×3 (10:03→19:50)
[2022-02-10] MEDS ORDERED: *HR* Rivaroxaban 10 MG TABLET PO SCH (12:00)
[2022-02-10] MEDS: DilTIAZem CD (24hr) 240 MG CAP.ER.24H PO SCH (12:13)
[2022-02-10] MEDS: Cefdinir 300 MG CAPSULE PO SCH (20:33)
[2022-02-10] MEDS ORDERED: Insulin LISPRO 300 UNITS/3 ML VIAL SUBQ SCH (21:00)
[2022-02-11] MEDS ORDERED: Azithromycin 500 MG in 0.9 % Sodium Chloride 250 ML IVPB SCH (03:00)
[2022-02-11] MEDS: Ipratropium/Albuterol Neb 3 ML IH SCH ×2 (03:21→09:57)
[2022-02-11] MEDS: predniSONE 20 MG TABLET PO SCH (07:54)
[2022-02-11] MEDS: DilTIAZem CD (24hr) 240 MG CAP.ER.24H PO SCH (07:54)
[2022-02-11] MEDS: Cefdinir 300 MG CAPSULE PO SCH (07:54)
[2022-02-11] MEDS: Insulin LISPRO 300 UNITS/3 ML VIAL SUBQ SCH (07:55)
[2022-02-11 08:02] VITALS: BP 177/77; PULSE 72; TEMP 97.7; O2SAT 94
== END 2022-02-11 11:23 | disposition home or self-care (01) ==
LOC: EMEROOARM 01:43 → 2ANU 01:43 → SUATTDRO 04:46 → 2ANU 04:49
PROVIDERS: ADMIT Family Medicine; ATTEND Internal Medicine